=== PATIENT | male | born 1940 | race Caucasian/White ===

== ENCOUNTER 2016-08-17 21:51 | Inpatient (IN) | payer MEDICARE, OTHER ==
[~2016-08-17] VITALS: Ht 180.3 cm; Wt 74.3 kg
[~2016-08-17 21:51] MED LIST: ASPI325T PO
[2016-08-17] MEDS ORDERED: SODIUM CHLOR 0.9% 1000 ML INJ 800 ML IV ONE (21:54)
[2016-08-17] MEDS ORDERED: SODIUM CHLOR 0.9% 1000 ML INJ 1,000 ML IV ONE (21:54)
[2016-08-17 21:55] VITALS: BP 106/68; PULSE 96; RESP 18; TEMP 99.6; O2SAT 99
[2016-08-17] MEDS ORDERED: ACETAMINOPHEN 325 MG TAB PO ONE (22:00)
--- NOTE | 2016-08-17 22:02 | PD ---
HPI Chief Complaint: Altered Mental Status Time Seen by Provider: 21:54 Travel History International Travel<30 days: No Contact w/Intl Traveler<30days: No Traveled to known affect area: No History of Present Illness HPI 75-year-old male brought in by ambulance from home for evaluation of not acting like himself according to the patient's . He was last seen acting normally this morning. Throughout the day today he has had little to eat and drink and has not been acting normally. EMS did not note any focal neurologic deficits. He did note that he felt warm and had a temperature of 100F. His blood glucose was 85. Patient is alert and oriented to person and place. He denies any physical complaints. No chest pain or dyspnea. No abdominal pain. No headache. Shortly after the patient arrived to the emergency department, the patient's was at the bedside. She tells me that the patient has been sleeping a lot more over the last 3 days. Today he was not answering questions appropriately. He has been coughing. He drinks a moderate amount of alcohol, recently cutting back on the amount he consumes. He was drinking about 2 bottles of whiskey every 2 days which has been cut back to 2 bottles of his whiskey every few weeks. PFSH Past Medical History Cardiac Catheterization: Yes Chest Pain: Yes Diminished Hearing: No Immunizations Current: Yes Myocardial Infarction: Yes (X1) Past Surgical History Cardiac Surgery: Yes Coronary Stent: Yes (X2) Hysterectomy: Yes (HTN) Social History Alcohol Use: Yes ("KADI' ~1/3 BOTTLE DAILY) Tobacco Use: Yes (~1 PPD) Substance Use: Yes (ETOH) Allergies-Medications (Allergen,Severity, Reaction): Coded Allergies: No Known Allergies (Unverified , 02/02/16) Reported Meds & Prescriptions Reported Meds & Active Scripts Active Reported Aspirin 325 Mg Tab 325 Mg PO DAILY Review of Systems Except as stated in HPI: all other systems reviewed are Neg Physical Exam Narrative GENERAL: Well-developed, well-nourished, awake, alert, no acute distress. SKIN: Warm and dry. No rash. HEAD: Atraumatic. Normocephalic. EYES: Pupils equal and round. No scleral icterus. No injection or drainage. ENT: Mucous membranes pink and dry. NECK: Trachea midline. No JVD. No nuchal rigidity. CARDIOVASCULAR: Rate 100, regular. RESPIRATORY: No accessory muscle use. Clear to auscultation. Breath sounds equal bilaterally. GASTROINTESTINAL: Abdomen soft, non-tender, nondistended. MUSCULOSKELETAL: No obvious deformities. No clubbing. No cyanosis. No edema. NEUROLOGICAL: Awake and alert. No obvious cranial nerve deficits. Motor grossly within normal limits. Normal speech. No focal deficits. Transferred himself from ambulance stretcher to ER stretcher. PSYCHIATRIC: Appropriate mood and affect; insight and judgment normal. Data Data Last Documented VS Vital Signs Date Time Temp Pulse Resp B/P Pulse Ox O2 Delivery O2 Flow Rate FiO2 08/17/16 22:29 101.2 97 16 108/72 99 08/17/16 22:04 Nasal Cannula 2 Orders Electrocardiogram (08/17/16 21:54) Complete Blood Count With Diff (08/17/16 21:54) Comprehensive Metabolic Panel (08/17/16 21:54) Prothrombin Time / Inr (Pt) (08/17/16 21:54) Act Partial Throm Time (Ptt) (08/17/16 21:54) Lactic Acid Sepsis Protocol (08/17/16 21:54) Urinalysis - C+S If Indicated (08/17/16 21:54) Influenzae A/B Antigen (08/17/16 21:54) Blood Culture (08/17/16 21:54) Chest, Single Ap (08/17/16 21:54) Blood Glucose (08/17/16 21:54) Ecg Monitoring (08/17/16 21:54) Iv Access Insert/Monitor (08/17/16 21:54) Oximetry (08/17/16 21:54) Oxygen Administration (08/17/16 21:54) Acetaminophen (Tylenol) (08/17/16 22:00) Sodium Chlor 0.9% 1000 Ml Inj (Ns 1000 M (08/17/16 21:54) Sodium Chlor 0.9% 1000 Ml Inj (Ns 1000 M (08/17/16 21:54) Ct Brain W/O Iv Contrast(Rout) (08/17/16 ) Ceftriaxone Inj (Rocephin Inj) (08/17/16 23:00) Azithromycin Inj (Zithromax Inj) (08/17/16 23:00) Alcohol (Ethanol) (08/17/16 22:51) Alcohol (Ethanol) (08/17/16 22:15) Admit Order (Ed Use Only) (08/17/16 23:13) Labs Laboratory Tests Test 08/17/16 22:15 White Blood Count 6.3 TH/MM3 Red Blood Count 3.53 MIL/MM3 Hemoglobin 11.1 GM/DL Hematocrit 32.9 % Mean Corpuscular Volume 93.2 FL Mean Corpuscular Hemoglobin 31.6 PG Mean Corpuscular Hemoglobin 33.9 % Concent Red Cell Distribution Width 15.4 % Platelet Count 139 TH/MM3 Mean Platelet Volume 9.1 FL Neutrophils (%) (Auto) 66.2 % Lymphocytes (%) (Auto) 17.7 % Monocytes (%) (Auto) 14.4 % Eosinophils (%) (Auto) 1.1 % Basophils (%) (Auto) 0.6 % Neutrophils # (Auto) 4.2 TH/MM3 Lymphocytes # (Auto) 1.1 TH/MM3 Monocytes # (Auto) 0.9 TH/MM3 Eosinophils # (Auto) 0.1 TH/MM3 Basophils # (Auto) 0.0 TH/MM3 CBC Comment DIFF FINAL Differential Comment Prothrombin Time 14.7 SEC Prothromb Time International 1.3 RATIO Ratio Activated Partial 28.5 SEC Thromboplast Time Urine Color YELLOW Urine Turbidity CLEAR Urine pH 8.5 Urine Specific [place] 1.018 Urine Protein NEG mg/dL Urine Glucose (UA) NEG mg/dL Urine Ketones NEG mg/dL Urine Occult Blood NEG Urine Nitrite NEG Urine Bilirubin NEG Urine Leukocyte Esterase NEG Microscopic Urinalysis Comment CATH-CULT NOT IND Sodium Level 137 MEQ/L Potassium Level 4.0 MEQ/L Chloride Level 104 MEQ/L Carbon Dioxide Level 24.1 MEQ/L Anion Gap 9 MEQ/L Blood Urea Nitrogen 10 MG/DL Creatinine 0.81 MG/DL Estimat Glomerular Filtration 93 ML/MIN Rate Random Glucose 88 MG/DL Lactic Acid Level 1.5 mmol/L Calcium Level 8.2 MG/DL Total Bilirubin 0.6 MG/DL Aspartate Amino Transf 19 U/L (AST/SGOT) Alanine Aminotransferase 19 U/L (ALT/SGPT) Alkaline Phosphatase 74 U/L Total Protein 6.5 GM/DL Albumin 3.0 GM/DL Ethyl Alcohol Level LESS THAN 3 MG/DL MDM Medical Decision Making Medical Screen Exam Complete: Yes Emergency Medical Condition: Yes Interpretation(s) EKG: Sinus, rate 98, left axis deviation, RBBB with LAFB, no acute ischemic abnormality. Differential Diagnosis UTI, sepsis, metabolic abnormality, intracranial abnormality Narrative Course Initial vital signs show heart rate 97, blood pressure 108/72, pulse ox 99% on 2 L nasal cannula, oral temp of 101.2F. CBC shows WBC 6.3, hemoglobin 11.1, hematocrit 32.9, platelets 139. CMP is unremarkable. Lactic acid is 1.5. Alcohol level is negative. UA is not suggestive of UTI. Influenza is negative. Chest x-ray: Minimal left basilar infiltrate and probable small pleural effusion. CT head: No acute intracranial disease. The patient was started on Rocephin and azithromycin. The patient and the patient's were made aware of all findings. Patient meets sepsis criteria with pneumonia as the source. Given this and his delirium, he'll be admitted for further treatment and evaluation. Case discussed with [facility] hospitalist LEV Sotelo. The patient will be admitted to their service under Dr. Israel Diagnosis Primary Impression: Sepsis Qualified Code: A41.9 - Sepsis, due to unspecified organism Additional Impressions: Pneumonia Qualified Code: J18.1 - Pneumonia of left lower lobe due to infectious organism Delirium Admitting Information Admitting Physician Requests: Admit Jesu Baig MD Aug 17, 2016 22:02
[2016-08-17] MEDS ORDERED: ASPI325T PO (22:03)
--- NOTE | 2016-08-17 22:17 | RADHPO ---
EXAM DATE/TIME: 08/17/2016 22:08 [facility] COMPARISON: No previous studies available for comparison. INDICATIONS : Fever starting today MEDICAL HISTORY : None. SURGICAL HISTORY : None. ENCOUNTER: Initial ACUITY: 1 day PAIN SCORE: 0/10 LOCATION: Bilateral chest FINDINGS: A single view of the chest demonstrates minimal left basilar density and probable small effusion. Rig ht lung clear. Heart normal size. The cardiomediastinal contours are unremarkable. Osseous structure s are intact. CONCLUSION: Minimal left basilar infiltrate and probable small pleural effusion.. Serge Castellanos MD on August 17, 2016 at 22:15 Board Certified Radiologist. This report was verified electronically.
[2016-08-17 22:29] VITALS: BP 108/72; PULSE 97; RESP 16; TEMP 101.2; O2SAT 99
--- NOTE | 2016-08-17 22:31 | RADHPO ---
EXAM DATE/TIME: 08/17/2016 22:14 [facility] COMPARISON: No previous studies available for comparison. INDICATIONS : Altered mental status with headache. RADIATION DOSE: 60.02 CTDIvol (mGy) MEDICAL HISTORY : Cardiovascular disease. Hypertension. SURGICAL HISTORY : None. ENCOUNTER: Initial ACUITY: 3 days PAIN SCALE: 3/10 LOCATION: cranial TECHNIQUE: Multiple contiguous axial images were obtained of the head. Using automated exposure control and adj ustment of the mA and/or kV according to patient size, radiation dose was kept as low as reasonably a chievable to obtain optimal diagnostic quality images. FINDINGS: CEREBRUM: The ventricles are normal for age. No evidence of midline shift, mass lesion, hemorrhage or acute in farction. No extra-axial fluid collections are seen. POSTERIOR FOSSA: The cerebellum and brainstem are intact. The 4th ventricle is midline. The cerebellopontine angle i s unremarkable. EXTRACRANIAL: The visualized portion of the orbits is intact. SKULL: The calvaria is intact. No evidence of skull fracture. CONCLUSION: No acute intracranial disease. Serge Castellanos MD on August 17, 2016 at 22:29 Board Certified Radiologist. This report was verified electronically.
[2016-08-17 22:43] LABS: APTT (PATIENT) 28.5 SEC (24.3-30.1); AUTOMATED NEUTROPHIL # 4.2 TH/MM3 (1.8-7.7); BASOPHIL % 0.6 % (0.0-2.0); BLOOD, URINE NEG (NEG); CHLORIDE 104 MEQ/L (98-107); EOSINOPHIL # 0.1 TH/MM3 (0-0.4); EOSINOPHIL % 1.1 % (0.0-4.0); GLUCOSE,URINE NEG (NEG); HEMATOCRIT 32.9 % (39.0-51.0); HEMO FLAGS DIFF FINAL; INTERNATIONAL NORMALIZED RATIO 1.3 RATIO; KETONE, URINE NEG (NEG); LYMPH % 17.7 % (9.0-44.0); LYMPHOCYTE # 1.1 TH/MM3 (1.0-4.8); MEAN CELL VOLUME 93.2 FL (80.0-100.0); MEAN CORPUSCULAR HEMOGLOBIN 31.6 PG (27.0-34.0); MEAN CORPUSCULAR HGB CONC 33.9 % (32.0-36.0); MONO % 14.4 % (0.0-8.0); NEUT % 66.2 % (16.0-70.0); NITRITE,URINE NEG (NEG); PH, URINE 8.5 (5.0-8.5); PLATELET COUNT 139 TH/MM3 (150-450); PROTHROMBIN TIME - PATIENT 14.7 SEC (9.8-11.6); RED BLOOD COUNT 3.53 MIL/MM3 (4.50-5.90); RED CELL DISTRIBUTION WIDTH 15.4 % (11.6-17.2); SODIUM (NA) 137 MEQ/L (136-145); WHITE BLOOD COUNT 6.3 TH/MM3 (4.0-11.0)
[2016-08-17 22:45] LABS: ANION GAP 9 MEQ/L (5-15); BICARBONATE 24.1 MEQ/L (21.0-32.0); BLOOD UREA NITROGEN 10 MG/DL (7-18); URINE COLOR YELLOW (YELLW/STRAW)
[2016-08-17 22:47] LABS: COMMENT (UR) CATH-CULT NOT IND; CULTURE IF INDICATED CATH CULTURE NOT IND
[2016-08-17 22:48] LABS: ALT (GPT) 19 U/L (12-78); AST (GOT) 19 U/L (15-37); GLOMERULAR FILTRATION RATE 93 ML/MIN (>89)
[2016-08-17 22:49] LABS: TOTAL BILIRUBIN ADULT 0.6 MG/DL (0.2-1.0)
[2016-08-17 22:51] LABS: ALKALINE PHOSPHATASE 74 U/L (45-117)
[2016-08-17] MEDS ORDERED: AZITHROMYCIN INJ 500 MG in SODIUM CHLOR 0.9% 250 ML INJ 250 ML IV ONE (23:00)
[2016-08-17] MEDS ORDERED: cefTRIAXone INJ 1,000 MG in SODIUM CHLORIDE 0.9% INJ 100 ML IV ONE (23:00)
[2016-08-17 23:42] VITALS: BP 110/73; PULSE 82; RESP 16; TEMP 98.6; O2SAT 99
[2016-08-18] VITALS (9 sets, daily range): BP systolic 101–113; BP diastolic 67–81; PULSE 84–115; RESP 16–20; TEMP 97.8–99.5; O2SAT 94–100
[2016-08-18] MEDS ORDERED: LORazepam 1 MG TAB PO PRN (01:15)
[2016-08-18] MEDS ORDERED: NALOXONE HCL 0.4 MG/ML AMP IV PRN (01:15)
[2016-08-18] MEDS ORDERED: guaiFENesin/DEXTROMETHORPHAN 200 MG/20 MG/10 ML CUP PO PRN (01:15)
[2016-08-18] MEDS ORDERED: ONDANSETRON HCL 4 MG/2 ML VIAL IVP PRN (01:15)
[2016-08-18] MEDS ORDERED: LORazepam 2 MG TAB PO PRN (01:15)
[2016-08-18] MEDS ORDERED: LORazepam 2 MG/ML VIAL IV PUSH PRN ×3 (01:15)
[2016-08-18] MEDS ORDERED: BISACODYL 10 MG SUPP PR PRN (01:15)
[2016-08-18] MEDS ORDERED: SODIUM CHLORIDE 0.9% FLUSH 5 ML FLUSH FLUSH PRN (01:15)
[2016-08-18] MEDS ORDERED: RESP: ALBUTEROL 2.5 MG/IPRATROPIUM 0.5 MG NEB (PRN) INH (01:15)
[2016-08-18] MEDS ORDERED: SENNOSIDES 8.6 MG TAB PO PRN (01:15)
[2016-08-18] MEDS ORDERED: ACETAMINOPHEN 325 MG TAB PO PRN (01:15)
[2016-08-18] MEDS: SODIUM CHLOR 0.9% 1000 ML INJ 1,000 ML IV SCH ×3 (03:00→22:09)
[2016-08-18] MEDS: SODIUM CHLORIDE 0.9% FLUSH 5 ML FLUSH FLUSH SCH ×2 (09:00→22:09)
--- NOTE | 2016-08-18 09:16 | HHI.PR ---
Objective Objective Results - Vital Signs Date Time Temp Pulse Resp B/P Pulse Ox O2 Delivery O2 Flow Rate FiO2 08/18/16 08:25 98.9 97 18 111/72 95 08/18/16 07:11 98.6 84 16 109/76 97 Room Air 08/18/16 06:57 84 18 109/76 97 Room Air 08/18/16 05:15 98.7 87 16 113/76 100 Room Air 08/18/16 05:15 89 100 Room Air 08/18/16 01:15 88 16 109/74 99 Room Air 08/17/16 23:42 98.6 82 16 110/73 99 Room Air 08/17/16 22:29 101.2 97 16 108/72 99 08/17/16 22:04 99 Nasal Cannula 2 08/17/16 22:04 99 08/17/16 21:55 99.6 96 18 106/68 99 I/O 08/17/16 08/17/16 08/17/16 08/18/16 08/18/16 08/18/16 07:00 15:00 23:00 07:00 15:00 23:00 Intake Total 350 ml 240 ml Output Total 400 ml 2200 ml Balance -400 ml -1850 ml 240 ml Intake Oral 240 ml IV Total 350 ml Output Urine Total 400 ml 2200 ml # Voids 10 Result Diagram: 08/17/165 08/17/165 Other Results Laboratory Tests Test 08/17/16 22:15 White Blood Count 6.3 Red Blood Count 3.53 Hemoglobin 11.1 Hematocrit 32.9 Mean Corpuscular Volume 93.2 Mean Corpuscular Hemoglobin 31.6 Mean Corpuscular Hemoglobin 33.9 Concent Red Cell Distribution Width 15.4 Platelet Count 139 Mean Platelet Volume 9.1 Neutrophils (%) (Auto) 66.2 Lymphocytes (%) (Auto) 17.7 Monocytes (%) (Auto) 14.4 Eosinophils (%) (Auto) 1.1 Basophils (%) (Auto) 0.6 Neutrophils # (Auto) 4.2 Lymphocytes # (Auto) 1.1 Monocytes # (Auto) 0.9 Eosinophils # (Auto) 0.1 Basophils # (Auto) 0.0 CBC Comment DIFF FINAL Differential Comment Prothrombin Time 14.7 Prothromb Time International 1.3 Ratio Activated Partial 28.5 Thromboplast Time Urine Color YELLOW Urine Turbidity CLEAR Urine pH 8.5 Urine Specific [place] 1.018 Urine Protein NEG Urine Glucose (UA) NEG Urine Ketones NEG Urine Occult Blood NEG Urine Nitrite NEG Urine Bilirubin NEG Urine Leukocyte Esterase NEG Microscopic Urinalysis Comment CATH-CULT NOT IND Sodium Level 137 Potassium Level 4.0 Chloride Level 104 Carbon Dioxide Level 24.1 Anion Gap 9 Blood Urea Nitrogen 10 Creatinine 0.81 Estimat Glomerular Filtration 93 Rate Random Glucose 88 Lactic Acid Level 1.5 Calcium Level 8.2 Total Bilirubin 0.6 Aspartate Amino Transf 19 (AST/SGOT) Alanine Aminotransferase 19 (ALT/SGPT) Alkaline Phosphatase 74 Total Protein 6.5 Albumin 3.0 Ethyl Alcohol Level LESS THAN 3 Date/Time Procedure Status Source Growth 08/17/16 22:30 Influenza Types A,B Antigen (FOSTER) - Final Complete Nasal Washing NEGATIVE FOR FLU A AND B ANTIGEN.... 08/17/16 22:30 Aerobic Blood Culture Received Blood Peripheral Pending 08/17/16 22:30 Anaerobic Blood Culture Received Blood Peripheral Pending A/P Assessment and Plan Patient has been counseled about anti-smoking and to stop drinking. Ciarra Burnett MD Aug 18, 2016 09:16
--- NOTE | 2016-08-18 09:57 | MH ---
cc: ISABELLA BURNETT DATE OF ADMISSION 08/17/2016 DATE OF [address] Isabella Burnett PRIMARY CARE DOCTOR Dr. Serna REASON FOR ADMISSION Altered mental status HISTORY OF PRESENT ILLNESS The patient is a very pleasant 75-year male with a significant past history of heart attack in 2000. As per patient since then, the patient is on aspirin and he takes some of multivitamins. The patient drinks, as per record, one third of a bottle of Bert Florentino daily. He used to drink more than that before. He is trying to cut it down from the past couple of weeks. He also has smoked one pack per day. As per the patient, he came to the hospital because of his . Now he is feeling good. He is alert and oriented x4. As per ER physician documentation, the patient was not acting himself yesterday. Throughout yesterday, he has had little to eat and drink. EMS did not find any neurological deficit. He has felt warm and he had a temperature of 100 degrees Fahrenheit. In the ER, he had a T-max of 101.2. He had an infiltrate and because of altered mental status with infiltrate and drinking, the patient was recommended for admission. At present, the patient is alert, oriented x4. Has no complaint. Except that he has some time cough with clear sputum. He is somewhat feeling weak, otherwise no other complaint. REVIEW OF SYSTEMS As described above in the history of present illness, otherwise negative for 10 systems. SOCIAL HISTORY The patient smoked one pack per day. He used to drink one bottle of Bert Florentino in two days now one-third every day. He does not do any drugs. living with his . PAST MEDICAL HISTORY History of heart attack in the past with coronary stent x2. He is only on aspirin. ALLERGIES NO KNOWN DRUG ALLERGIES. MEDICATIONS Aspirin 325 mg a day FAMILY HISTORY Noncontributory PHYSICAL EXAMINATION The patient is alert and oriented x4 lying on bed without any apparent distress. VITAL SIGNS: The patient is afebrile, pulse is 98, respiratory rate 18, blood pressure 111/72, pulse ox 95% on room air. HEENT: Head is atraumatic, normocephalic. Negative conjunctival icterus unremarkable. Mouth unremarkable. NECK: Supple. No increased JVD. Negative thyromegaly. Central trachea. CHEST: Slight decreased air entry bibasilar with occasional rhonchi, otherwise unremarkable. CVS: S1 and S2 audible. Unable to hear any S3 gallop. GI: Abdomen soft, no organomegaly. Positive bowel sounds. MUSCULOSKELETAL: Extremities have no cyanosis or pedal edema appreciated. MACHINE SETTER: Grossly intact. SKIN: Warm and dry. PSYCH: Appropriate mood and affect. INVESTIGATIONS UA within normal limits. BMP within normal limits. Calcium 8.2. LFTs within normal limit. Albumin is 3. WBC is within normal limits. Hemoglobin 11.1, hematocrit 32.9, platelet count is 139. PT 14%, INR and APTT within normal limits. He does have an alcohol less than 3. Nasal washing shows negative for flu A and B antigen. Head CT was done which shows no acute intracranial process. Chest x-ray was done which showed minimal left basilar infiltrate and probably a small pleural effusion. EKG was done which shows sinus rhythm at rate of 98 beats per minute with RBBB. ASSESSMENT 1. Altered mental status metabolic encephalopathy secondary to Pneumonia. 2. Pneumonia left lower lobe community-acquired. 3. Alcohol abuse 4. Nicotine abuse 5. History of CAD status post stent now on aspirin only. PLAN 1. Admit to the floor. 2. IV hydration 3. IV antibiotic for pneumonia. 4. WA protocol for withdrawal and watch for withdrawal and DTs. 5. Aspirin 6. Encourage activity 7. See orders. 8. Further recommendation to follow as the patient progress. 9. Partner will follow from tomorrow. Isabella Burnett MD JP/ROBERT /9:11 AM /9:43 AM
--- NOTE | 2016-08-18 10:27 | EKG ---
Date Performed: 08/17/2016 Time Performed: 22:09:42 PTAGE: 75 years EKG: Sinus rhythm with PAC(s) Left axis deviation RBBB with left anterior fascicular block Abnormal ECG NO PREVIOUS TRACING DOCTOR: Torito Conte Interpretating Date/Time 08/18/2016 10:25:52
[2016-08-18] MEDS: THIAMINE HCL 100 MG TAB PO SCH (12:24)
[2016-08-18] MEDS: FOLIC ACID 1 MG TAB PO SCH (12:24)
[2016-08-18] MEDS: MULTIVITAMINS/MINERALS THERAPEUTIC TAB PO SCH (12:24)
[2016-08-18] MEDS: PANTOPRAZOLE SOD 40 MG DELAYED RELEASE TAB PO SCH (12:24)
[2016-08-18] MEDS: HEPARIN SODIUM - SQ 10,000 UNITS/ML VIAL SQ SCH ×2 (12:26→22:09)
[2016-08-18] MEDS: AZITHROMYCIN 250 MG TAB PO SCH (22:09)
[2016-08-18] MEDS: cefTRIAXone INJ 1,000 MG in SODIUM CHLORIDE 0.9% INJ 100 ML IV SCH (22:10)
[2016-08-19] VITALS (7 sets, daily range): BP systolic 102–132; BP diastolic 70–94; PULSE 77–118; RESP 14–20; TEMP 96.9–100.2; O2SAT 93–99
[2016-08-19] MEDS: SODIUM CHLOR 0.9% 1000 ML INJ 1,000 ML IV SCH ×3 (06:22→23:29)
[2016-08-19 07:36] LABS: HEMATOCRIT 33.2 % (39.0-51.0); MEAN CELL VOLUME 93.4 FL (80.0-100.0); MEAN CORPUSCULAR HEMOGLOBIN 30.3 PG (27.0-34.0); MEAN CORPUSCULAR HGB CONC 32.4 % (32.0-36.0); PLATELET COUNT 128 TH/MM3 (150-450); RED BLOOD COUNT 3.55 MIL/MM3 (4.50-5.90); RED CELL DISTRIBUTION WIDTH 15.1 % (11.6-17.2)
[2016-08-19 08:02] LABS: MAGNESIUM 1.7 MG/DL (1.5-2.5)
[2016-08-19 08:06] LABS: INDIRECT BILIRUBIN 0.3 MG/DL (0.0-0.8); TOTAL BILIRUBIN ADULT 0.4 MG/DL (0.2-1.0)
[2016-08-19 08:50] LABS: EOSINOPHILS 2 % (0-4); NEUTROPHIL # MANUAL DIFF 1.8 TH/MM3 (1.8-7.7); POLYS (SEG NEUTROPHILS) 46 % (16-70); WBC DIFF SAMPLE 100
[2016-08-19 08:51] LABS: PLATELET ESTIMATE SMEAR LOW (NORMAL); PLATELET MORPHOLOGY NORMAL (NORMAL); SCAN/DIFF FINAL DIFF MANUAL
[2016-08-19] MEDS: SODIUM CHLORIDE 0.9% FLUSH 5 ML FLUSH FLUSH SCH ×2 (09:00→20:11)
[2016-08-19] MEDS: PANTOPRAZOLE SOD 40 MG DELAYED RELEASE TAB PO SCH (09:25)
[2016-08-19] MEDS: FOLIC ACID 1 MG TAB PO SCH (09:25)
[2016-08-19] MEDS: MULTIVITAMINS/MINERALS THERAPEUTIC TAB PO SCH (09:25)
[2016-08-19] MEDS: THIAMINE HCL 100 MG TAB PO SCH (09:25)
[2016-08-19] MEDS: HEPARIN SODIUM - SQ 10,000 UNITS/ML VIAL SQ SCH ×2 (09:26→20:12)
[2016-08-19] MEDS ORDERED: INFLUENZA VIRUS VACCINE (QUADRIVALENT) 0.5 ML SYR IM ONE (10:00)
[2016-08-19] MEDS ORDERED: PNEUMOCOCCAL POLYVALENT INJ 25 MCG/0.5 ML SYR IM ONE (10:00)
--- NOTE | 2016-08-19 12:07 | HHI.PR ---
Subjective Interval History sleeping, Arousable, breathing better, less cough, some tremor at times according to the nurse Review of Systems Constitutional Constitutional Remarks Cough, tremor, 10 systems reviewed and otherwise negative Vitals/Results Intake & Output 08/18/16 08/18/16 08/19/16 15:00 23:00 07:00 Intake Total 720 ml 120 ml 1170 ml Output Total 125 ml 300 ml Balance 720 ml -5 ml 870 ml Intake Oral 720 ml 120 ml 120 ml IV Total 1050 ml Output Urine Total 125 ml 300 ml # Voids 3 1 3 # Bowel Movements 2 0 0 Vital Signs Vital Signs Date Time Temp Pulse Resp B/P Pulse Ox O2 Delivery O2 Flow Rate FiO2 08/19/16 08:00 98.1 95 16 120/81 94 08/19/16 08:00 77 08/19/16 04:00 98.9 90 20 102/71 96 08/19/16 00:00 98.5 98 20 111/79 95 08/18/16 20:00 98.7 115 20 108/81 95 08/18/16 16:00 99.5 89 18 101/67 94 CBC/BMP: 08/19/16 0700 08/17/16 2215 Lab Results Laboratory Tests Test 08/19/16 07:00 White Blood Count 4.0 TH/MM3 Red Blood Count 3.55 MIL/MM3 Hemoglobin 10.8 GM/DL Hematocrit 33.2 % Mean Corpuscular Volume 93.4 FL Mean Corpuscular Hemoglobin 30.3 PG Mean Corpuscular Hemoglobin 32.4 % Concent Red Cell Distribution Width 15.1 % Platelet Count 128 TH/MM3 Mean Platelet Volume 8.8 FL Differential Total Cells 100 Counted Neutrophils % (Manual) 46 % Lymphocytes % 37 % Monocytes % 15 % Eosinophils % 2 % Neutrophils # (Manual) 1.8 TH/MM3 Differential Comment FINAL DIFF MANUAL Platelet Estimate LOW Platelet Morphology Comment NORMAL Phosphorus Level 3.0 MG/DL Magnesium Level 1.7 MG/DL Total Bilirubin 0.4 MG/DL Direct Bilirubin 0.1 MG/DL Indirect Bilirubin 0.3 MG/DL Aspartate Amino Transf 20 U/L (AST/SGOT) Alanine Aminotransferase 15 U/L (ALT/SGPT) Alkaline Phosphatase 57 U/L Total Protein 5.7 GM/DL Albumin 2.6 GM/DL Physical Exam General General Appearance: Well Nourished, Comfortable, Anxious Eyes Eye Exam: Pupils Reactive Ears & Nose Ears & Nose Exam: Nasal Mucosa [place] Throat Throat Exam: Oral Mucosa [place] & Moist Neck Neck Exam: Trachea Midline Pulmonary Resp Exam: Crackles, Rhonchi Cardiology CV Exam: Normal Sinus Rhythm, Good Perfusion Gastrointestinal/Abdomen GI Exam: Non-Tender, Bowel Sounds Present Musculoskeletal MS Exam: Normal Tone, Good Strength Integumentary Skin Exam: Warm, Dry Neurologic Neuro Exam: Awake, Oriented, Speech Clear, Moving All Extremities VTE Prophylaxis VTE Prophylaxis Meds: Heparin Assessment/Plan Assessment/Plan ASSESSMENT . Altered mental status metabolic encephalopathy Upon admission, this has improved. . Pneumonia left lower lobe community-acquired. . Alcohol abuse . Nicotine abuse . History of CAD status post stent now on aspirin only. PLAN . Telemetry . IV hydration . IV antibiotic for pneumonia. . CIWA protocol for withdrawal and watch for withdrawal and DTs . Thiamine . DVT prophylaxis with low dose heparin . Aspirin . Discussed with patient, discussed with nurse 35 min.. Markos Israel MD Aug 19, 2016 12:07
[2016-08-19] MEDS: AZITHROMYCIN 250 MG TAB PO SCH (20:12)
[2016-08-19] MEDS: cefTRIAXone INJ 1,000 MG in SODIUM CHLORIDE 0.9% INJ 100 ML IV SCH (23:29)
[2016-08-20] VITALS (10 sets, daily range): BP systolic 100–120; BP diastolic 72–82; PULSE 82–101; RESP 14–22; TEMP 97–100.4; O2SAT 95–100
[2016-08-20] MEDS: HEPARIN SODIUM - SQ 10,000 UNITS/ML VIAL SQ SCH (09:00)
[2016-08-20] MEDS: SODIUM CHLORIDE 0.9% FLUSH 5 ML FLUSH FLUSH SCH ×2 (09:00→21:00)
[2016-08-20] MEDS: PANTOPRAZOLE SOD 40 MG DELAYED RELEASE TAB PO SCH (09:13)
[2016-08-20] MEDS: THIAMINE HCL 100 MG TAB PO SCH (09:13)
[2016-08-20] MEDS: FOLIC ACID 1 MG TAB PO SCH (09:13)
[2016-08-20] MEDS: MULTIVITAMINS/MINERALS THERAPEUTIC TAB PO SCH (09:13)
--- NOTE | 2016-08-20 10:44 | HHI.PR ---
Subjective Remarks 75yr old male seen an examined today. Non compliant with fall precautions. Spiked a temp of 100.4 yesterday night. No NVD/CVP/SOB. Objective Objective Results - Vital Signs Date Time Temp Pulse Resp B/P Pulse Ox O2 Delivery O2 Flow Rate FiO2 08/20/16 08:21 96 21 08/20/16 08:00 97.0 88 21 107/79 96 08/20/16 05:11 99.9 88 16 120/82 95 08/20/16 01:58 99.8 08/20/16 00:12 100.4 93 14 116/76 95 08/19/16 21:45 97 08/19/16 20:12 100.2 118 14 107/70 93 08/19/16 16:00 97.7 86 16 132/94 99 08/19/16 12:00 96.9 80 16 105/71 98 I/O 08/19/16 08/19/16 08/19/16 08/20/16 08/20/16 08/20/16 07:00 15:00 23:00 07:00 15:00 23:00 Intake Total 1170 ml 480 ml 2343 ml Output Total 300 ml 200 ml 800 ml Balance 870 ml 280 ml 1543 ml Intake Oral 120 ml 480 ml IV Total 1050 ml 2343 ml Output Urine Total 300 ml 200 ml 800 ml # Voids 3 5 3 # Bowel Movements 0 Result Diagram: 08/19/16 0700 08/17/165 Other Results Date/Time Procedure Status Source Growth 08/17/16 22:30 Influenza Types A,B Antigen (FOSTER) - Final Complete Nasal Washing NEGATIVE FOR FLU A AND B ANTIGEN.... 08/17/16 22:30 Aerobic Blood Culture - Preliminary Resulted Blood Peripheral NO GROWTH IN 2 DAYS 08/17/16 22:30 Anaerobic Blood Culture - Preliminary Resulted Gram Positive Cocci ROS General: No: Fatigue, Weakness, Other HEENT: No: Sore Throat, Dysphagia, Other Cardiac: No: Chest Pain, Edema, Palpitations, Other Pulmonary: No: Cough, SOB, Wheezing, Other GI: No: Abdominal Pain, BM, Diarrhea, N/V, Other /ROLLER INSPECTOR: No: Dysuria, Urgency, Other Neuro/MS: No: Lightheaded, Confusion, Other Psych: No: Anxiety, Depression, Other Skin: No: Itching, Rash, Other Physical Exam Physical Exam PHYSICAL EXAMINATION GENERAL: This is a well-developed, well-nourished male who appears to be in no acute distress. He is alert and awake. HEAD: Normocephalic without any lesion or mass noted. Facial features appear symmetric. EYES: [place], Normal eye movement, No icterus. OROPHARYNGEAL: Oropharynx without erythema or edema. MOUTH/THROAT: Moist oral mucosa. NECK: Supple. CARDIAC: Regular rhythm, regular rate, S1 and S2 are heard. No murmur. LUNGS: Clear to auscultation bilaterally. Occ wheezes. ABDOMEN: Soft, nontender, no organomegaly or masses. Bowel sounds are heard in all four quadrants. No rebound. No guarding. EXTREMITIES: No edema. NEUROLOGICAL: No focal deficits. SKIN:Warm and moist PSYCH: Mood and affect appropriate A/P Assessment and Plan Asesessment: 1. Pneumonia left lower lobe community-acquired. 2. Bacteremia: gm pos cocci. 3. Fever. 4. Alcohol abuse 5. Nicotine abuse 6. History of CAD status post stent now on aspirin only. PLAN Change abx to vancomycin 1gm iv/day Consult pharmacy for dosing/monitoring. Consult ID. Dc IVF as patient is eating/drinking well. WA protocol for withdrawal and watch for withdrawal and DTs. Aspirin Encourage activity Hold Heparin due to low platelets. PUD prophylaxis: PPI. AM labs. discussed with pt/RN. Polly Thorne MD Aug 20, 2016 10:44
[2016-08-20] MEDS ORDERED: VANCOMYCIN INJ 1,000 MG in SODIUM CHLOR 0.9% 250 ML INJ 250 ML IV SCH (11:00)
[2016-08-20] MEDS ORDERED: HEPARIN SODIUM - SQ 10,000 UNITS/ML VIAL SQ SCH (15:00)
--- NOTE | 2016-08-20 17:27 | MB ---
cc: ALAN ARCE MD DATE OF CONSULTATION 08/20/[address] Thorne REASON FOR CONSULTATION Positive blood culture. HISTORY OF PRESENT ILLNESS This is a 75-year-old white male who presented to emergency department with altered mental status. The patient was brought to the emergency department by EMS. In the emergency department, the patient was noted to have elevated temperature of 101.2 degrees. The white blood cell count was normal. Chest x-ray was performed and it showed minimal left basilar infiltrate. The patient was admitted and started on IV antibiotics. Blood cultures were taken on admission and one of four bottles has gram-positive cocci. The patient currently is laying in bed. He is in no acute distress. He tells me that he feels fine. He does have low grade fever with his last T-max being 100.4 degrees earlier this morning. He denies headache, chills, shortness of breath, cough, sputum production, abdominal pain or diarrhea. CT scan of the head showed no acute intracranial abnormality. Urinanalysis on 08/17 was unremarkable. PAST MEDICAL HISTORY 1. Three coronary artery stent x2 in 2000. 2. History of myocardial infarction. ALLERGIES NO KNOWN DRUG ALLERGIES. MEDICATIONS 1. Vancomycin. 2. Folic acid. 3. Vitamin B12. 4. Multivitamin 5. Protonix SOCIAL HISTORY Positive alcohol intake daily. The patient smokes a pack of cigarettes a day. No illicit drugs. FAMILY HISTORY Noncontributory. REVIEW OF SYSTEMS CONSTITUTIONAL: Remarkable for fever. No chills. HEENT: Denies visual blurring or diplopia, nasal bleeding, difficulty swallowing or soreness of the throat. NECK: Denies pain or swelling. CARDIOVASCULAR: Denies palpitation or chest pain. RESPIRATORY: Denies cough or sputum production or shortness of breath. GASTROINTESTINAL: Denies nausea, vomiting, abdominal pain or diarrhea. GENITOURINARY: Denies urgency, frequency or dysuria. MUSCULOSKELETAL: Denies aches or pains. HEMATOPOIETIC: Denies easy bruising or bleeding. ENDOCRINE: Denies polyuria, polydipsia. NEUROLOGIC: The patient has tremulousness PHYSICAL EXAMINATION GENERAL: This is a slender male who is in no acute distress. He is awake and he is alert and oriented. VITAL SIGNS: Temperature 97.1, BP 104/78, respirations 20, heart rate 101. HEENT: Head is atraumatic. Extraocular movements grossly intact, pupils reactive to light. No icterus. Oropharynx no visible lesions. NECK: Supple and has no adenopathy. LUNGS: Clear breath sounds HEART: Regular rate and rhythm. No audible murmurs. ABDOMEN: Bowel sounds present, soft, no tenderness appreciated. RECTAL: Not performed. EXTREMITIES: No clubbing, cyanosis or edema. The patient has ecchymosis at the forearm of the left upper extremity. An IV is located at the left upper extremity and there is no swelling or palpable cord. NEUROLOGIC: The patient is awake, alert and oriented. No gross focal findings. SKIN: No rash. PSYCHIATRIC: The patient is calm and cooperative. LABORATORY DATA WBC 4.0, platelet count 128, 46% neutrophils, 37% lymphocytes, 15% monocytes, hemoglobin 10.8, creatinine 0.81, BUN 10, sodium 137. Liver function tests normal. IMPRESSION Bacteremia. Positive blood culture with gram-positive cocci in 1/4 bottles. The patient admitted with altered mental status but now His mental status appears clear. He does have low grade fever without any clear foci of origin of sepsis or cause of fever. However, he did have infiltrate on chest x-ray on 08/17 which may be the cause of the fever. I think the positive blood culture is very likely due to contamination rather than a true cause of the fever. RECOMMENDATIONS 1. Monitor the identity of the gram-positive bacteria in the blood stream. If it is staph coagulase negative, I think it is due to contamination. If it is staph coagulase-positive, we will need to follow up on the identity of the bacteria and repeat the blood culture again. If the bacteria is coag-negative staph, I think we can discontinue the vancomycin. 2. Continue to monitor the patient's temperature. Thank you for this consultation. I will monitor the patient's progress along with you and will make further recommendations if necessary. Alan Arce MD FD/ /4:04 PM /4:54 PM CHRISTI
[2016-08-21] VITALS: BP 99/69; PULSE 87; RESP 18; TEMP 98.6; O2SAT 97
[2016-08-21 04:00] VITALS: BP 107/71; PULSE 85; RESP 18; TEMP 98.5; O2SAT 97
[2016-08-21 08:00] VITALS: BP 112/86; PULSE 113; RESP 20; TEMP 98.4; O2SAT 94
[2016-08-21] MEDS: THIAMINE HCL 100 MG TAB PO SCH (08:17)
[2016-08-21] MEDS: PANTOPRAZOLE SOD 40 MG DELAYED RELEASE TAB PO SCH (08:17)
[2016-08-21] MEDS: SODIUM CHLORIDE 0.9% FLUSH 5 ML FLUSH FLUSH SCH (08:17)
[2016-08-21] MEDS: FOLIC ACID 1 MG TAB PO SCH (08:17)
[2016-08-21] MEDS: MULTIVITAMINS/MINERALS THERAPEUTIC TAB PO SCH (08:17)
--- NOTE | 2016-08-21 08:21 | HHI.PR ---
Subjective Remarks 75yr old male seen an examined today. Feeling good. Wants to go home. Objective Objective Results - Vital Signs Date Time Temp Pulse Resp B/P Pulse Ox O2 Delivery O2 Flow Rate FiO2 08/21/16 04:00 98.5 85 18 107/71 97 08/21/16 00:00 98.6 87 18 99/69 97 08/20/16 20:00 97.0 86 18 108/72 96 08/20/16 20:00 82 08/20/16 19:46 95 21 08/20/16 16:06 97.1 98 22 100/74 100 08/20/16 12:00 97.1 101 20 104/78 99 08/20/16 09:15 94 08/20/16 08:21 96 21 I/O 08/20/16 08/20/16 08/20/16 08/21/16 08/21/16 08/21/16 07:00 15:00 23:00 07:00 15:00 23:00 Intake Total 2343 ml 900 ml 360 ml Output Total 800 ml Balance 1543 ml 900 ml 360 ml Intake Oral 900 ml 360 ml IV Total 2343 ml Output Urine Total 800 ml # Voids 3 6 2 5 # Bowel Movements 0 0 0 Result Diagram: 08/19/16 0700 08/17/165 Other Results Date/Time Procedure Status Source Growth 08/17/16 22:30 Influenza Types A,B Antigen ([facility]) - Final Complete Nasal Washing NEGATIVE FOR FLU A AND B ANTIGEN.... 08/17/16 22:30 Aerobic Blood Culture - Preliminary Resulted Blood Peripheral NO GROWTH IN 3 DAYS 08/17/16 22:30 Anaerobic Blood Culture - Preliminary Resulted Gram Positive Cocci ROS General: No: Fatigue, Weakness, Other HEENT: No: Sore Throat, Dysphagia, Other Cardiac: No: Chest Pain, Edema, Palpitations, Other Pulmonary: No: Cough, SOB, Wheezing, Other GI: No: Abdominal Pain, BM, Diarrhea, N/V, Other /PRODUCT TEST SPECIALIST: No: Dysuria, Urgency, Other Neuro/MS: No: Lightheaded, Confusion, Other Psych: No: Anxiety, Depression, Other Skin: No: Itching, Rash, Other Physical Exam Physical Exam PHYSICAL EXAMINATION GENERAL: This is a well-developed, well-nourished male who appears to be in no acute distress. He is alert and awake. HEAD: Normocephalic without any lesion or mass noted. Facial features appear symmetric. EYES: Perrla, Normal eye movement, No icterus. OROPHARYNGEAL: Oropharynx without erythema or edema. MOUTH/THROAT: Moist oral mucosa. NECK: Supple. CARDIAC: Regular rhythm, regular rate, S1 and S2 are heard. No murmur. LUNGS: Clear to auscultation bilaterally. Occ wheezes. ABDOMEN: Soft, nontender, no organomegaly or masses. Bowel sounds are heard in all four quadrants. No rebound. No guarding. EXTREMITIES: No edema. NEUROLOGICAL: No focal deficits. SKIN:Warm and moist PSYCH: Mood and affect appropriate A/P Assessment and Plan Asesessment: 1. Pneumonia left lower lobe community-acquired. 2. Bacteremia: gm pos cocci. 3. Fever. 4. Alcohol abuse 5. Nicotine abuse 6. History of CAD status post stent now on aspirin only. PLAN appreciate ID input. Dc IVF as patient is eating/drinking well. No fever overnight. Blood cultures: prob contamination. Will dc home on doxycycline. follow cultures. discussed with pt/RN. Polly Thorne MD Aug 21, 2016 08:21
[2016-08-21 08:45] LABS: AUTOMATED NEUTROPHIL # 2.9 TH/MM3 (1.8-7.7); BASOPHIL % 0.2 % (0.0-2.0); EOSINOPHIL # 0.1 TH/MM3 (0-0.4); EOSINOPHIL % 2.5 % (0.0-4.0); HEMATOCRIT 33.7 % (39.0-51.0); HEMO FLAGS DIFF FINAL; LYMPH % 28.1 % (9.0-44.0); LYMPHOCYTE # 1.3 TH/MM3 (1.0-4.8); MEAN CELL VOLUME 91.5 FL (80.0-100.0); MEAN CORPUSCULAR HEMOGLOBIN 29.4 PG (27.0-34.0); MEAN CORPUSCULAR HGB CONC 32.2 % (32.0-36.0); MONO % 9.9 % (0.0-8.0); NEUT % 59.3 % (16.0-70.0); PLATELET COUNT 117 TH/MM3 (150-450); RED BLOOD COUNT 3.69 MIL/MM3 (4.50-5.90); RED CELL DISTRIBUTION WIDTH 15.2 % (11.6-17.2); WHITE BLOOD COUNT 4.8 TH/MM3 (4.0-11.0)
[2016-08-21 08:54] LABS: POTASSIUM 3.6 MEQ/L (3.5-5.1)
[2016-08-21 08:58] LABS: BICARBONATE 23.5 MEQ/L (21.0-32.0)
[2016-08-21] MEDS ORDERED: VITA100T2 PO (09:33)
[2016-08-21] MEDS ORDERED: DOXY100C PO (09:33)
[2016-08-21] MEDS ORDERED: PANT40TA3 PO (09:33)
== END 2016-08-21 11:52 | disposition home or self-care (01) | DRG 193 ==
LOC: PHED 21:51 → PHEDA 23:14 → INTOOBSV 23:14 → PHEDH 08-18 03:14 → PH3B 08-18 08:10 → OBSVTOIN 08-20 15:16
PROVIDERS: ADMIT Specialist; ATTEND Specialist
DX: J18.9 Pneumonia, unspecified organism (principal); G93.41 Metabolic encephalopathy; R78.81 Bacteremia; F17.210 Nicotine dependence, cigarettes, uncomplicated; I25.2 Old myocardial infarction; I25.10 Atherosclerotic heart disease of native coronary artery without angina pectoris; Z95.5 Presence of coronary angioplasty implant and graft; Z79.82 Long term (current) use of aspirin; I45.10 Unspecified right bundle-branch block; F10.10 Alcohol abuse, uncomplicated; R25.1 Tremor, unspecified; Z23 Encounter for immunization
CPT/HCPCS: 70450; 71010; 80048; 80053; 80076; 80307; 81001; 83605; 83735; 84100; 85007; 85025; 85027; 85610; 85730; 87040; 87185; 87205; 87804; 90471; 90686; 90732; 93005; G0008; G0009; G0378; J0456; J0696; J1644; J3370; J7030; J7050; Q2038

== ENCOUNTER 2018-04-17 12:57 | Inpatient (IN) ==
[2018-04-17] MEDS ORDERED: Pantoprazole Inj 80 MG in Sodium Chlor 0.9% Inj 50 ML IV.SIG ONE (13:22)
[2018-04-17] MEDS ORDERED: Sod Chloride 0.9% Inj 1,000 ML IV.SIG ONE (13:22)
--- NOTE | 2018-04-17 13:32 | ED ---
HPI General Chief complaint: GI Bleed Stated complaint: vomiting x930a.m Time Seen by Provider: 04/17/18 13:13 History of Present Illness HPI narrative: Patient presents to the emergency department complaining of vomiting dark brown fluid that started this morning. States he has never had these symptoms before. He denies bloody stool, hematuria, abdominal pain, chest pain, shortness of breath, headache, fever, vision change, chills, but reports sweating. He takes 2 baby aspirin every day and the last dose was yesterday. He is a heavy drinker he drinks approximately 10 ounces of liquor every day with the last drink being 4 hours ago. States he does have tremors when he stops drinking. Patient has an entire cup full of dark brown emesis that he brought to the ER. He has never had an upper GI or colonoscopy. Related Data Home Medications Medication Instructions Recorded Confirmed aspirin [Aspir-81] 162 mg PO DAILY 04/17/18 04/17/18 magnesium 500 mg PO DAILY 04/17/18 04/17/18 thiamine HCl (vitamin B1) [Vitamin 0 04/17/18 B-1] Allergies Allergy/AdvReac Type Severity Reaction Status Date / Time No Known Allergies Allergy Verified 04/17/18 13:05 Review of Systems ROS: all other systems reviewed are negative [facility] Medical History Medical History Myocardial infarction (Acute) Surgical History Surgical History H/O inguinal hernia repair (Acute) History of coronary artery stent placement (Acute) History of tonsillectomy and adenoidectomy (Acute) Family History Family History Father Esophageal cancer Mother Dementia Social History Social History Smoking Status: Heavy tobacco smoker Tobacco Type: Cigarettes How Often Do You Have a Drink Containing Alcohol: 4 or more times a week Recent Travel in [facility] within the Last 8 Weeks: No Recent Out of Country Travel within the Last 8 Weeks: No Immunization History Tetanus Immunization: Unsure Exam Narrative Exam Narrative: GENERAL: Tremulous on exam. SKIN: Focused skin assessment warm/dry. HEAD: Atraumatic. Normocephalic. EYES: Pupils equal and round. No scleral icterus. No injection or drainage. ENT: No nasal bleeding or discharge. Mucous membranes pink and moist. NECK: Trachea midline. No JVD. CARDIOVASCULAR: Tachy, irreg. No murmur appreciated. RESPIRATORY: No accessory muscle use. Clear to auscultation. Breath sounds equal bilaterally. GASTROINTESTINAL: Abdomen soft, non-tender, nondistended. Hepatic and splenic margins not palpable. Rectal: Brown stool, Hemoccult positive MUSCULOSKELETAL: No obvious deformities. No clubbing. No cyanosis. No edema. NEUROLOGICAL: Awake and alert. No obvious cranial nerve deficits. Motor grossly within normal limits. Normal speech. PSYCHIATRIC: Appropriate mood and affect; insight and judgment normal. Course Initial Documented Vital Signs Temperature 97.6 F 04/17/18 13:02 Pulse Rate 109 H 04/17/18 13:02 Respiratory Rate 18 04/17/18 13:02 Blood Pressure 122/84 04/17/18 13:02 Pulse Oximetry 98 04/17/18 13:02 Last Documented Vital Signs Temperature 98 F 04/18/18 03:00 Pulse Rate 91 H 04/18/18 03:00 Respiratory Rate 14 04/18/18 03:00 Blood Pressure 135/83 04/18/18 03:00 Pulse Oximetry 99 04/18/18 03:00 Critical Care Time Critical Care Time: Yes Total Critical Care Time: 35 Attestation: Aggregate critical care time was 35 minutes. Time to perform other separately billable procedures was not included in the critical care time. My time did not include minutes spent treating any other patients simultaneously or on activities that did not directly contribute to the patient's treatment. The services I provided to this patient were to treat and/or prevent clinically significant deterioration that could result in: , cardiac arrest, respiratory arrest I provided critical care services requiring my management, as noted below: Chart data review, documentation time, medication orders and management, vital sign assessments/reviewing monitor data, ordering and reviewing lab tests, ordering and interpreting/reviewing x-rays and diagnostic studies, care of the patient and discussion of the patient with the admitting physicians. Medical Decision Making MDM Narrative Medical decision making narrative: Patient presents to the emergency department complaining of vomiting brown fluid. Patient placed on cardiac nurse, continuous pulse ox, and IV access obtained. Hemoccult of the emesis which patient has in a container is positive. EKG, chest x-ray, labs, 80 mg IV Protonix, IV fluids ordered. Patient typed and screened for 3 units PRBCs. 1400: patient is orthostatic (supine 130/85, 126; stand 76/60, 145-156 HR with dizzyness). Started on protonix gtt. 1458: Spoke to Dr Sonido, GI acquisition professional. Request patient [facility] transfered [facility] and his colleague, Dr Burk be called when patient arrives there. Also wants octreotide 100mcg bolus then 100mcg/hr in the event that patient has varices. Dicsussed with patient and his partner. He's still tremulous, will give another 1mg IV ativan. 1514: Admitted to Dr Bueno. 1gram IV rocephin, additional liter of IV NS ordered for total of 3 L at request of Dr Bueno. 1530: Dr Head at patient's bedside. Medical Screen Exam Complete: Yes Emergency Medical Condition: Yes Lab Data Result diagrams: 04/17/18 17:45 04/17/18 13:37 Lab Results 04/17/18 04/17/18 04/17/18 Range/Units 13:37 13:37 13:37 CBC w Diff Auto diff final WBC 8.2 (4.0-11.0) th/mm3 RBC 4.36 L (4.50-5.90) mil/mm3 Hgb 15.5 (13.0-17.0) gm/dL Hct 45.3 (39.0-51.0) % MCV 104.0 H (80.0-100.0) fL MCH 35.6 H (27.0-34.0) pg MCHC 34.2 (32.0-36.0) % RDW 14.2 (11.6-17.2) % Plt Count 103 L (150-450) th/mm3 MPV 9.7 (7.0-11.0) fL Neut % (Auto) 73.0 H (16.0-70.0) % Lymph % (Auto) 16.8 (9.0-44.0) % [place] % (Auto) 9.2 H (0.0-8.0) % Eos % (Auto) 0.4 (0.0-4.0) % Baso % (Auto) 0.6 (0.0-2.0) % Neut # (Auto) 6.0 (1.8-7.7) th/mm3 Lymph # (Auto) 1.4 (1.0-4.8) th/mm3 [place] # (Auto) 0.8 (0.0-0.9) th/mm3 Eos # (Auto) 0.0 (0.0-0.4) th/mm3 Baso # (Auto) 0.0 (0.0-0.2) th/mm3 WBC Differential . Differential Comment . PT 14.0 H (9.8-11.6) sec INR 1.4 Ratio APTT 25.5 (23.4-31.7) sec Sodium 140 (136-145) meq/L Potassium 4.5 (3.5-5.1) meq/L Chloride 105 (98-107) meq/L Carbon Dioxide 20.9 L (21.0-32.0) meq/L Anion Gap 14 (5-15) meq/L BUN 26 H (7-18) mg/dL Creatinine 0.85 (0.60-1.30) mg/dL Estimated GFR 88 L (>89) mL/min POC Glucose (68-110) mg/dl Random Glucose 123 H (74-106) mg/dL Calcium 7.9 L (8.5-10.1) mg/dL Magnesium 1.8 (1.5-2.5) mg/dL Total Bilirubin 1.6 H (0.2-1.0) mg/dL AST 105 H (15-37) U/L ALT 75 (12-78) U/L Alkaline Phosphatase 58 (45-117) U/L Ammonia (11-32) mcmol/L Troponin I Less than 0.02 L (0.02-0.05) ng/mL B-Natriuretic Peptide (0-100) pg/mL Total Protein 6.6 (6.4-8.2) g/dL Albumin 3.0 L (3.4-5.0) g/dL Lipase 55 L (73-393) U/L Nasal Screen MRSA (PCR) (Negative) Serum Alcohol 47 H (0-5) mg/dL Blood Type Blood Type Recheck Antibody Screen 04/17/18 04/17/18 04/17/18 Range/Units 13:37 13:37 13:37 CBC w Diff WBC (4.0-11.0) th/mm3 RBC (4.50-5.90) mil/mm3 Hgb (13.0-17.0) gm/dL Hct (39.0-51.0) % MCV (80.0-100.0) fL MCH (27.0-34.0) pg MCHC (32.0-36.0) % RDW (11.6-17.2) % Plt Count (150-450) th/mm3 MPV (7.0-11.0) fL Neut % (Auto) (16.0-70.0) % Lymph % (Auto) (9.0-44.0) % [place] % (Auto) (0.0-8.0) % Eos % (Auto) (0.0-4.0) % Baso % (Auto) (0.0-2.0) % Neut # (Auto) (1.8-7.7) th/mm3 Lymph # (Auto) (1.0-4.8) th/mm3 [place] # (Auto) (0.0-0.9) th/mm3 Eos # (Auto) (0.0-0.4) th/mm3 Baso # (Auto) (0.0-0.2) th/mm3 WBC Differential Differential Comment PT (9.8-11.6) sec INR Ratio APTT (23.4-31.7) sec Sodium (136-145) meq/L Potassium (3.5-5.1) meq/L Chloride (98-107) meq/L Carbon Dioxide (21.0-32.0) meq/L Anion Gap (5-15) meq/L BUN (7-18) mg/dL Creatinine (0.60-1.30) mg/dL Estimated GFR (>89) mL/min POC Glucose (68-110) mg/dl Random Glucose (74-106) mg/dL Calcium (8.5-10.1) mg/dL Magnesium (1.5-2.5) mg/dL Total Bilirubin (0.2-1.0) mg/dL AST (15-37) U/L ALT (12-78) U/L Alkaline Phosphatase (45-117) U/L Ammonia 48 H (11-32) mcmol/L Troponin I (0.02-0.05) ng/mL B-Natriuretic Peptide 144 H (0-100) pg/mL Total Protein (6.4-8.2) g/dL Albumin (3.4-5.0) g/dL Lipase (73-393) U/L Nasal Screen MRSA (PCR) (Negative) Serum Alcohol (0-5) mg/dL Blood Type A Positive Blood Type Recheck Required Antibody Screen Negative 04/17/18 04/17/18 04/17/18 Range/Units 17:45 17:45 18:45 CBC w Diff WBC (4.0-11.0) th/mm3 RBC (4.50-5.90) mil/mm3 Hgb 13.3 D (13.0-17.0) gm/dL Hct 39.9 (39.0-51.0) % MCV (80.0-100.0) fL MCH (27.0-34.0) pg MCHC (32.0-36.0) % RDW (11.6-17.2) % Plt Count (150-450) th/mm3 MPV (7.0-11.0) fL Neut % (Auto) (16.0-70.0) % Lymph % (Auto) (9.0-44.0) % [place] % (Auto) (0.0-8.0) % Eos % (Auto) (0.0-4.0) % Baso % (Auto) (0.0-2.0) % Neut # (Auto) (1.8-7.7) th/mm3 Lymph # (Auto) (1.0-4.8) th/mm3 [place] # (Auto) (0.0-0.9) th/mm3 Eos # (Auto) (0.0-0.4) th/mm3 Baso # (Auto) (0.0-0.2) th/mm3 WBC Differential Differential Comment PT (9.8-11.6) sec INR Ratio APTT (23.4-31.7) sec Sodium (136-145) meq/L Potassium (3.5-5.1) meq/L Chloride (98-107) meq/L Carbon Dioxide (21.0-32.0) meq/L Anion Gap (5-15) meq/L BUN (7-18) mg/dL Creatinine (0.60-1.30) mg/dL Estimated GFR (>89) mL/min POC Glucose 113 H (68-110) mg/dl Random Glucose (74-106) mg/dL Calcium (8.5-10.1) mg/dL Magnesium (1.5-2.5) mg/dL Total Bilirubin (0.2-1.0) mg/dL AST (15-37) U/L ALT (12-78) U/L Alkaline Phosphatase (45-117) U/L Ammonia (11-32) mcmol/L Troponin I (0.02-0.05) ng/mL B-Natriuretic Peptide (0-100) pg/mL Total Protein (6.4-8.2) g/dL Albumin (3.4-5.0) g/dL Lipase (73-393) U/L Nasal Screen MRSA (PCR) Not detected (Negative) Serum Alcohol (0-5) mg/dL Blood Type Blood Type Recheck Antibody Screen 04/18/18 Range/Units 02:48 CBC w Diff WBC (4.0-11.0) th/mm3 RBC (4.50-5.90) mil/mm3 Hgb (13.0-17.0) gm/dL Hct (39.0-51.0) % MCV (80.0-100.0) fL MCH (27.0-34.0) pg MCHC (32.0-36.0) % RDW (11.6-17.2) % Plt Count (150-450) th/mm3 MPV (7.0-11.0) fL Neut % (Auto) (16.0-70.0) % Lymph % (Auto) (9.0-44.0) % [place] % (Auto) (0.0-8.0) % Eos % (Auto) (0.0-4.0) % Baso % (Auto) (0.0-2.0) % Neut # (Auto) (1.8-7.7) th/mm3 Lymph # (Auto) (1.0-4.8) th/mm3 [place] # (Auto) (0.0-0.9) th/mm3 Eos # (Auto) (0.0-0.4) th/mm3 Baso # (Auto) (0.0-0.2) th/mm3 WBC Differential Differential Comment PT (9.8-11.6) sec INR Ratio APTT (23.4-31.7) sec Sodium (136-145) meq/L Potassium (3.5-5.1) meq/L Chloride (98-107) meq/L Carbon Dioxide (21.0-32.0) meq/L Anion Gap (5-15) meq/L BUN (7-18) mg/dL Creatinine (0.60-1.30) mg/dL Estimated GFR (>89) mL/min POC Glucose 135 H (68-110) mg/dl Random Glucose (74-106) mg/dL Calcium (8.5-10.1) mg/dL Magnesium (1.5-2.5) mg/dL Total Bilirubin (0.2-1.0) mg/dL AST (15-37) U/L ALT (12-78) U/L Alkaline Phosphatase (45-117) U/L Ammonia (11-32) mcmol/L Troponin I (0.02-0.05) ng/mL B-Natriuretic Peptide (0-100) pg/mL Total Protein (6.4-8.2) g/dL Albumin (3.4-5.0) g/dL Lipase (73-393) U/L Nasal Screen MRSA (PCR) (Negative) Serum Alcohol (0-5) mg/dL Blood Type Blood Type Recheck Antibody Screen Imaging Data Radiologist's impression: Chest X-Ray 04/17/18 13:22 CONCLUSION: No acute cardiopulmonary disease. ECG Data Attestation: I personally reviewed and interpreted this ECG as follows: (Left axis deviation, wave inversion in V1, ST depression in aVL, right bundle branch block, A. fib with RVR at 105,) Discharge Plan Discharge Disposition Patient Disposition: 02 Transfer To [facility] [place] Discharge Condition Condition: Stable Discharge Details Diagnosis: Upper gastrointestinal hemorrhage, Atrial fibrillation with rapid ventricular response, Alcohol withdrawal Physicians Team ED Provider: Marilin Choudhary Primary Care Provider: Michelet Serna Attending Provider: Leandro Bueno Other Providers: Radha Burk Discharge Interventions Interventions: ED Discharge Assessment Last Done: 04/17/18 17:53 Vital Signs Last Done: 04/17/18 15:43 Status ED Status: Left Department Discharge Information Discharge Date/Time: 04/17/18 17:53
--- NOTE | 2018-04-17 13:59 | XR ---
EXAM DATE: 04/17/2018 1:42 PM EST AGE/SEX: 77 years / Male INDICATIONS: Vomiting. CLINICAL DATA: This is the patient's initial encounter. Patient reports that signs and symptoms have been present for 1 day and indicates a pain score of 0/10. MEDICAL/SURGICAL HISTORY: Myocardial infarction. Coronary artery stent. COMPARISON: [facility], CHEST SINGLE AP, 08/17/2016. . FINDINGS: The lungs are clear without infiltrate, nodule, or mass. There is no appreciable pleural effusion fo r technique. Heart and mediastinum are unremarkable. CONCLUSION: No acute cardiopulmonary disease. Electronically signed by: Juanjose Ely MD 04/17/2018 1:57 PM EST
[2018-04-17 14:05] LABS: Chloride 105 meq/L (98-107); Potassium 4.5 meq/L (3.5-5.1); Sodium 140 meq/L (136-145)
[2018-04-17 14:06] LABS: Baso % (Auto) 0.6 % (0.0-2.0); Eos % (Auto) 0.4 % (0.0-4.0); Hematocrit 45.3 % (39.0-51.0); Hemoglobin 15.5 gm/dL (13.0-17.0); Lymph # (Auto) 1.4 th/mm3 (1.0-4.8); Lymph % (Auto) 16.8 % (9.0-44.0); Mean Corpuscular HGB Conc 34.2 % (32.0-36.0); Mean Corpuscular Hemoglobin 35.6 pg (27.0-34.0); Mean Platelet Volume 9.7 fL (7.0-11.0); Mono # (Auto) 0.8 th/mm3 (0.0-0.9); Mono % (Auto) 9.2 % (0.0-8.0); Platelet Count 103 th/mm3 (150-450); Red Blood Count 4.36 mil/mm3 (4.50-5.90); Red Cell Distribution Width 14.2 % (11.6-17.2); White Blood Count 8.2 th/mm3 (4.0-11.0)
[2018-04-17 14:09] LABS: Anion Gap 14 meq/L (5-15); Calcium 7.9 mg/dL (8.5-10.1); Carbon Dioxide 20.9 meq/L (21.0-32.0); Glucose,Random 123 mg/dL (74-106); Lipase 55 U/L (73-393); Magnesium 1.8 mg/dL (1.5-2.5)
[2018-04-17 14:10] LABS: Blood Urea Nitrogen 26 mg/dL (7-18)
[2018-04-17 14:12] LABS: Alanine Aminotransferase 75 U/L (12-78); Aspartate Aminotransferase 105 U/L (15-37); Glomerular Filtration Rate 88 mL/min (>89)
[2018-04-17 14:14] LABS: Alcohol 47 mg/dL (0-5); Total Protein 6.6 g/dL (6.4-8.2)
[2018-04-17 14:15] LABS: Alkaline Phosphatase 58 U/L (45-117)
[2018-04-17 14:44] LABS: Activated Partial Thrombo Time 25.5 sec (23.4-31.7); INR 1.4 Ratio
[2018-04-17] MEDS ORDERED: Sod Chloride 0.9% Inj 1,000 ML IV.SIG SCH ×2 (15:15)
[2018-04-17] MEDS: Pantoprazole Inj 80 MG in Sodium Chlor 0.9% Inj 100 ML IV.CONT SCH ×2 (15:22→23:27)
[2018-04-17] MEDS: Octreotide Inj 500 MCG in Sodium Chlor 0.9% Inj 500 ML IV.CONT SCH ×2 (15:39→21:05)
--- NOTE | 2018-04-17 16:02 | MB ---
cc: Stuart Head MD [facility],Leandro English MD DATE: 04/17/2018 REASON FOR CONSULTATION: Hematemesis, nausea, vomiting. HISTORY OF PRESENT ILLNESS: Mr. Crisostomo is a 77-year-old gentleman with heavy alcohol use for 40 years. He is also a smoker. He states he has never had any previous issues with GI bleeding. States since morning he has thrown up, multiple times, a bloody material. He brought a jar full of bloody vomited with him. He has not had any vomiting since he has been here in the hospital. He was seen in the emergency room. His vitals are stable, although his heart rate is fluctuating widely. He is extremely tremulous and appears to be going into alcohol withdrawals. He says whenever he stops drinking for a few hours he starts having symptoms of withdrawal. He has not had any melena. He has no abdominal pain. REVIEW OF SYSTEMS: No active gastrointestinal bleeding at this time. He has very tremulous. No melena or hematemesis active at this time. PAST MEDICAL HISTORY: History of coronary artery disease, history of GA. PAST SURGICAL HISTORY: Hernia repair, coronary artery stent placement, tonsillectomy, adenoidectomy. SOCIAL HISTORY: The patient smokes 1 pack of cigarettes daily. Drinks about 8 ounces of alcohol, mostly whiskey, daily. PHYSICAL EXAMINATION: GENERAL: Reveals a well-nourished man, appears very tremulous. SKIN: Flushed. HEAD AND NECK: Slightly icteric sclerae. CHEST: Bilateral air entry with rales. ABDOMEN: Soft, nontender. No hepatosplenomegaly. Bowel sounds are present. CENTRAL NERVOUS SYSTEM: Nonfocal. RECTAL: Deferred at this time. LABORATORY DATA: Reveal a hemoglobin of 15.5, platelets 103. INR is 1.4. Creatinine is 0.85. Total bilirubin 1.6. IMPRESSION: Acute gastrointestinal bleeding, possible varices, possible peptic ulcer disease, possible gastritis. The patient is also extremely tremulous with alcohol withdrawal, possibility of DTs. RECOMMENDATIONS: Case has been discussed with the ER physician. At this time the patient is being transferred to intensive care unit at [facility]. Dr. Burk will follow from there. GI plans include IV Protonix, IV octreotide, type and screen for 4 units of blood, n.p.o. with IV fluid, endoscopy is planned. Dr. Burk will follow in [facility]. Thank you for this referral. MD RICK Gomez/jb , 03:33 PM , 03:39 PM
[2018-04-17] MEDS ORDERED: Bisacodyl 10 MG Supp RECTAL PRN (16:15)
[2018-04-17] MEDS ORDERED: Haloperidol Inj 5 MG/ML Ampul IV.PUSH PRN (16:21)
[2018-04-17 17:59] LABS: Hematocrit 39.9 % (39.0-51.0); Hemoglobin 13.3 gm/dL (13.0-17.0)
[2018-04-17] MEDS: Thiamine Inj 100 MG in Sodium Chlor 0.9% Inj 100 ML IV.SIG SCH (19:58)
--- NOTE | 2018-04-17 22:42 | P.CONCC ---
History of Present Illness Service: Critical care medicine Consult date: 04/17/18 Requesting Physician: Radha Burk Reason for Consult: Critical care management of patient with upper GI bleeding Primary Care Provider: Michelet Serna MD Chief Complaint: Vomiting History of Present Illness: 77-year-old male who states he has a past medical history of myocardial infarction in 2000 with stent x2 presented to [facility] with vomiting. He states that sometime in the morning of 04/17 he began vomiting "dark liquid" and that he has vomited on 4 occasions. He had a bowel movement earlier today that he says was normal brown stool. He denies melena or bright red blood per rectum. Says he has not had any additional vomiting since presenting to the hospital. He denies prior issues with GI bleeding. Denies abdominal pain. 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 He denies taking any additional NSAIDs. He does drink 6-8 ounces of whiskey daily. He has never had a prior EGD or colonoscopy. 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 He is in A fib with rate 110s. He denies prior history of A fib. Denies CP or SOB Review of Systems All other systems reviewed negative except as stated in [facility] - History History Provided By: Patient - Medical History Medical History: Medical History (Last Updated 04/17/18 @ 13:16 by Marcia Strange RN) Myocardial infarction - Surgical History Surgical History: Surgical History (Last Updated 04/17/18 @ 23:18 by Yoavna Horta MD) H/O inguinal hernia repair History of coronary artery stent placement History of tonsillectomy and adenoidectomy - Family History Family History: Family History (Last Updated 04/17/18 @ 23:18 by Yovana Horta MD) Father Esophageal cancer Mother Dementia - Tobacco History Tobacco Use In Past 30 Days: Yes Smoking Status: Heavy tobacco smoker Tobacco Type: Cigarettes - Alcohol History How Often Do You Have a Drink Containing Alcohol: 4 or more times a week - Travel History Recent Travel in the [facility] Within the Last 8 Weeks: No Recent Travel Out of the Country Within the Last 8 Weeks: No - Immunization History Tetanus Immunization: Unsure Medications and Allergies Active Medications: Active Medications Al Hydroxide/Mg Hydroxide (Milk Of Magnesia Liq) 30 ml PO Q12H PRN PRN Reason: Mild Constipation Albuterol (Duoneb Neb (Prn)) 1 ampul NEB Q2HR NEB PRN PRN Reason: WHEEZING Bisacodyl (Dulcolax Supp) 10 mg RECTAL DAILY PRN PRN Reason: SEVERE CONSITIPATION Chlorhexidine Gluconate (Chlorhexidine 2% Cloth) 3 pack TOPICAL DAILY@0400 ASHLEY Stop: 04/23/18 03:59 Chlorhexidine Gluconate (Chlorhexidine 2% Cloth) 3 pack TOPICAL DAILY@0400 PRN PRN Reason: Extra cloth needed Stop: 04/23/18 03:59 Flumazenil (Romazecon Inj) 0.2 mg IV.PUSH Q1M PRN PRN Reason: OVERSEDATION Folic Acid (Folic Acid) 1 mg PO DAILY [facility] Stop: 04/23/18 08:59 Haloperidol Lactate (Haldol Inj) 1 mg IV.PUSH Q15M PRN PRN Reason: for severe agitation Pantoprazole Sodium 80 mg/ (Sodium Chloride) 100 mls @ 10 mls/hr IV.CONT CONT [facility] Last Admin: 04/17/18 15:22 Dose: 10 mls/hr Octreotide Acetate 500 mcg/ (Sodium Chloride) 500.5 mls @ 100.1 mls/hr IV.CONT .Q5H [facility] Last Admin: 04/17/18 21:05 Dose: 100 mcg/hr, 100.1 mls/hr Potassium Chloride/Sodium Chloride (Ns + Kcl 20 Meq Inj) 1,000 mls @ 125 mls/ hr IV.CONT .Q8H [facility] Last Admin: 04/17/18 20:03 Dose: 125 mls/hr Ceftriaxone Sodium 1,000 mg/ (Sodium Chloride) 100 mls @ 200 mls/hr IV.SIG Q24H [facility] Thiamine HCl 100 mg/ Sodium (Chloride) 101 mls @ 100 mls/hr IV.SIG Q24H [facility] Stop: 04/19/18 19:01 Last Admin: 04/17/18 19:58 Dose: 100 mls/hr Lactulose (Lactulose Liq) 30 ml PO DAILY PRN PRN Reason: SEVERE CONSITIPATION Lorazepam (Ativan) 1 mg PO Q4H PRN PRN Reason: for CIWA 8-10 Lorazepam (Ativan) 2 mg PO Q2H PRN PRN Reason: for CIWA 11-14 Lorazepam (Ativan Inj) 2 mg IV.PUSH Q2H PRN PRN Reason: for CIWA 11-14 Lorazepam (Ativan Inj) 2 mg IV.PUSH Q1H PRN PRN Reason: for CIWA 15-20 Lorazepam (Ativan Inj) 1 mg IV.PUSH Q4H PRN PRN Reason: for CIWA 8-10 Lorazepam (Ativan Inj) 2 mg IV.PUSH Q15M PRN PRN Reason: for CIWA > 20 Ondansetron HCl (Zofran Inj) 4 mg IV.PUSH Q6H PRN PRN Reason: NAUSEA OR VOMITING Senna/Docusate Sodium (Remedios-Colace) 1 tab PO BID [facility] Sennosides (Senokot) 17.2 mg PO Q12H PRN PRN Reason: Moderate Constipation Sodium Chloride (Ns Flush) 2 ml IV.FLUSH BID ASHLEY Sodium Chloride (Ns Flush) 2 ml IV.FLUSH PRN PRN PRN Reason: FLUSH AFTER USING IV ACCESS Thiamine HCl (Vitamin B1) 100 mg PO DAILY [facility] Allergies Allergy/AdvReac Type Severity Reaction Status Date / Time No Known Allergies Allergy Verified 04/17/18 13:05 Home Medications Medication Instructions Recorded Confirmed Type aspirin [Aspir-81] 162 mg PO DAILY 04/17/18 04/17/18 History magnesium 500 mg PO DAILY 04/17/18 04/17/18 History thiamine HCl (vitamin B1) [Vitamin 0 04/17/18 History B-1] Physical Exam Vital signs: Vital Signs 04/17/18 13:02 04/17/18 14:04 04/17/18 15:43 Temperature 97.6 F Pulse Rate 109 H 125 H 109 H Respiratory Rate 18 16 12 Blood Pressure 122/84 143/76 H 123/86 Pulse Oximetry 98 97 93 L 04/17/18 15:48 04/17/18 17:07 04/17/18 17:46 Temperature Pulse Rate 93 H 100 H Respiratory Rate 16 15 Blood Pressure 129/83 100/62 Pulse Oximetry 93 L 100 95 04/17/18 19:00 04/17/18 20:00 04/17/18 20:12 Temperature 98.7 F Pulse Rate 100 H 100 H Respiratory Rate 15 Blood Pressure 126/76 Pulse Oximetry 95 96 Intake & Output 04/17/18 04/17/18 04/18/18 06:59 18:59 06:59 Intake Total 2150 / 2150 500.5 / 500.5 Output Total 575 / 575 Balance 1575 / 1575 500.5 / 500.5 Weight 86 kg Intake: IV 2150 / 2150 500.5 / 500.5 SandoSTATIN Inj 500 MCG In NS 500.5 / 500.5 Inj 500 ML @ 100 MCG/HR 100.1 mls/hr IV.CONT .Q5H [facility] Rx#: [id number] Protonix Inj 80 MG In NS Inj 50 50 / 50 ML @ 600 mls/hr IV.SIG BOLUS ONE Rx#:[id number] NS Inj 1,000 ML @ 1000 mls/hr 1999 / 1999 IV.SIG BOLUS ASHLEY Rx#:[id number] Rocephin Inj 1,000 MG In NS Inj 100 / 100 100 ML @ 200 mls/hr IV.SIG ONCE ONE Rx#:[id number] Output: Urine 575 / 575 Other: Date of Last Bowel Movement 04/17/18 Narrative: GENERAL: Elderly-appearing male who is in L lat decubitus position in IMC bed, arouses to voice and answers questions appropriately. SKIN: Warm and dry. HEAD: Atraumatic. Normocephalic. EYES: Pupils equal and round, 4 mm and reactive to 2 mm bilaterally. No scleral icterus. No injection or drainage. ENT: No nasal bleeding or discharge. NECK: Trachea midline. No JVD. CARDIOVASCULAR: irreg irreg. No murmurs rubs or gallops. RESPIRATORY: Breathing comfortably with no accessory muscle use. Clear to auscultation bilaterally. No wheezes rales or rhonchi. GASTROINTESTINAL: Abdomen soft, no tenderness to palpation. No rebound or guarding. Bowel sounds are present. MUSCULOSKELETAL: Extremities without clubbing, cyanosis, or edema. No obvious deformities. NEUROLOGICAL: Awake and alert. No obvious cranial nerve deficits. Motor grossly within normal limits. Normal speech. Assessment and Plan - Problem List (1) Upper gastrointestinal hemorrhage Code(s): K92.2 - Gastrointestinal hemorrhage, unspecified Status: Acute (2) Tobacco abuse Code(s): Z72.0 - Tobacco use Status: Chronic (3) EtOH dependence Code(s): F10.20 - Alcohol dependence, uncomplicated Status: Chronic (4) Atrial fibrillation/flutter Status: Acute (5) Hyperammonemia Code(s): E72.20 - Disorder of urea cycle metabolism, unspecified Status: Acute (6) Presence of stent in coronary artery in patient with coronary artery disease Code(s): I25.10 - Atherosclerotic heart disease of [place] coronary artery without angina pectoris; Z95.5 - Presence of coronary angioplasty implant and graft Status: Chronic - Assessment and Plan Plan: NEURO: Alcohol dependence Thiamine IV/folic acid/multivitamin. CIWA protocol Alcohol cessation counseling Hyperammonemia Lactulose 30 ml po bid. F/u ammonia level. RESP: Tobacco abuse Tobacco cessation counseling Nasal cannula wean as tolerated CV: Coronary artery disease with prior myocardial infarction and stents x2 Atrial fibrillation/flutter - currently rate controlled. No known prior history of A fib. Cardizem if needed for RVR >110. Check TSH, Echo. Magnesium sulfate 1 gram IV . CHADS2-VASC score at least 2, will discuss with GI the appropriateness of custodial anticoagulation depending on findings. GI: Vomiting Upper GI bleed Continue Protonix and octreotide drips. Serial hemoglobin every 6 hours, transfuse as indicated Gastroenterology consult FEN/RENAL: Smith is in place. Monitor intake and output. Monitor electrolytes. Replace as indicated per ICU electrolyte replacement protocol. 0.9 NaCl with 20 mill equivalent of KCl per liter at 125 mL/h. ID: Rocephin 1 gram IV q24 hours for SBP prophylaxis HEME: INR is 1.4. Platelet 103. Transfuse as indicated for Hgb <8. ENDO: Blood glucose is at target. Continue to monitor. PROPH: SCDs for DVT prophylaxis. Pharmacologic DVT prophylaxis contraindicated due to concern for GI bleeding. Protonix drip as per above will provide stress ulcer prophylaxis. ACCESS: PIV FULL CODE Level 3 Consult
[2018-04-17] MEDS ORDERED: dilTIAZem Inj 125 MG in Sodium Chlor 0.9% Inj 100 ML IV.CONT PRN (23:49)
[2018-04-17] MEDS ORDERED: Potassium Phosphate 500 MG Soluble Tablet PO PRN ×2 (23:53)
[2018-04-17] MEDS ORDERED: Sodium Phosphate Inj 30 MMOL in Sodium Chlor 0.9% Inj 250 ML IV.SIG PRN (23:53)
[2018-04-17] MEDS ORDERED: Mag Sulf 1 gm/100 ml Premix 100 ML IV.SIG ONE (23:53)
[2018-04-17] MEDS ORDERED: Potassium Chlor 40 mEq Premix 40 MEQ/100 ML PIGGYBACK IV.SIG PRN ×2 (23:53)
[2018-04-17] MEDS ORDERED: Potassium Phosphate Inj 30 MMOL in Sodium Chlor 0.9% Inj 250 ML IV.SIG PRN (23:53)
[2018-04-17] MEDS ORDERED: Magnesium Oxide 400 MG Tablet PO PRN (23:53)
[2018-04-17] MEDS ORDERED: Potassium Chlor 20 mEq Premix 20 MEQ/100 ML PIGGYBACK IV.SIG PRN ×2 (23:53)
[2018-04-17] MEDS ORDERED: Magnesium Sulfate Inj 2 GM in Sodium Chlor 0.9% Inj 96 ML IV.SIG PRN (23:53)
[2018-04-17] MEDS ORDERED: Magnesium Sulfate Inj 4 GM in Sodium Chlor 0.9% Inj 92 ML IV.SIG PRN (23:53)
[2018-04-17] MEDS ORDERED: Potassium Chloride 25 MEQ Effervescent Tablet PO PRN (23:53)
[2018-04-18] MEDS: Senna/Docusate Sodium 8.6/50 MG Tablet PO SCH ×3 (01:14→22:28)
[2018-04-18] MEDS: Octreotide Inj 500 MCG in Sodium Chlor 0.9% Inj 500 ML IV.CONT SCH ×6 (02:24→22:29)
[2018-04-18] MEDS ORDERED: Chlorhexidine Gluconate 2% 1 Pack (2 Cloths) TOPICAL PRN (04:00)
[2018-04-18 05:59] LABS: Hemoglobin 13.3 gm/dL (13.0-17.0); Mean Corpuscular HGB Conc 34.1 % (32.0-36.0); Mean Corpuscular Hemoglobin 36.9 pg (27.0-34.0); Mean Corpuscular Volume 108.2 fL (80.0-100.0); Platelet Count 73 th/mm3 (150-450); Red Blood Count 3.61 mil/mm3 (4.50-5.90); Red Cell Distribution Width 14.5 % (11.6-17.2); White Blood Count 7.8 th/mm3 (4.0-11.0)
[2018-04-18] MEDS: Chlorhexidine Gluconate 2% 1 Pack (2 Cloths) TOPICAL SCH (06:03)
[2018-04-18 06:08] LABS: INR 1.4 Ratio
[2018-04-18 06:24] LABS: Alanine Aminotransferase 49 U/L (12-78); Albumin 2.5 g/dL (3.4-5.0); Alkaline Phosphatase 42 U/L (45-117); Anion Gap 7 meq/L (5-15); Aspartate Aminotransferase 56 U/L (15-37); Blood Urea Nitrogen 24 mg/dL (7-18); Calcium 6.7 mg/dL (8.5-10.1); Carbon Dioxide 26.2 meq/L (21.0-32.0); Chloride 112 meq/L (98-107); Glomerular Filtration Rate Greater Than 89 mL/min (>89); Glucose,Random 133 mg/dL (74-106); Phosphorus 2.7 mg/dL (2.5-4.9); Potassium 4.7 meq/L (3.5-5.1); Sodium 145 meq/L (136-145); Total Protein 5.1 g/dL (6.4-8.2)
--- NOTE | 2018-04-18 07:14 | P.PNCC ---
Subjective Subjective Remarks/Hospital Course: 77-year-old male who states he has a past medical history of myocardial infarction in 2000 with stent x2 presented to [facility] with vomiting. He states that sometime in the morning of 04/17 he began vomiting "dark liquid" and that he has vomited on 4 occasions. He had a bowel movement earlier today that he says was normal brown stool. He denies melena or bright red blood per rectum. Says he has not had any additional vomiting since presenting to the hospital. He denies prior issues with GI bleeding. Denies abdominal pain. 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 He denies taking any additional NSAIDs. He does drink 6-8 ounces of whiskey daily. He has never had a prior EGD or colonoscopy. 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 11.7 Patient is lying in be din NAD. On Octreotide and Protonix drips. Afebrile. Objective Vital Signs / I&O: Vital Signs 04/17/18 13:02 04/17/18 14:04 04/17/18 15:43 Temperature 97.6 F Pulse Rate 109 H 125 H 109 H Respiratory Rate 18 16 12 Blood Pressure 122/84 143/76 H 123/86 Pulse Oximetry 98 97 93 L 04/17/18 15:48 04/17/18 17:07 04/17/18 17:46 Temperature Pulse Rate 93 H 100 H Respiratory Rate 16 15 Blood Pressure 129/83 100/62 Pulse Oximetry 93 L 100 95 04/17/18 19:00 04/17/18 20:00 04/17/18 20:12 Temperature 98.7 F 98.4 F Pulse Rate 100 H 98 H Respiratory Rate 15 13 Blood Pressure 126/76 109/72 Pulse Oximetry 95 96 96 04/17/18 21:00 04/17/18 22:00 04/17/18 23:00 Temperature 98 F 98 F 97.8 F Pulse Rate 121 H 102 H 88 Respiratory Rate 23 18 11 L Blood Pressure 124/81 102/57 L Pulse Oximetry 95 100 99 04/18/18 00:00 04/18/18 01:00 04/18/18 02:00 Temperature 98 F 98.0 F Pulse Rate 88 92 H 95 H Respiratory Rate 14 13 15 Blood Pressure 102/57 L 108/55 L 117/74 Pulse Oximetry 99 100 100 04/18/18 03:00 04/18/18 04:00 04/18/18 05:00 Temperature 98 F 98.0 F 98 F Pulse Rate 91 H 93 H 93 H Respiratory Rate 14 23 26 H Blood Pressure 135/83 124/76 102/66 Pulse Oximetry 99 100 99 04/18/18 06:00 04/18/18 06:25 04/18/18 06:59 Temperature 98.4 F 98 F Pulse Rate 55 L 99 H Respiratory Rate 18 19 Blood Pressure 138/64 110/74 Pulse Oximetry 99 99 Intake & Output 04/17/18 04/18/18 04/18/18 18:59 06:59 18:59 Intake Total 2150 / 2150 3302.0 / 3302.0 Output Total 575 / 575 750 / 750 Balance 1575 / 1575 2552.0 / 2552.0 Weight 86 kg 87.5 kg Intake: IV 2150 / 2150 3302.0 / 3302.0 NS + KCl 20 mEq Inj 1,000 ML @ 1000 / 1000 125 mls/hr IV.CONT .Q8H [facility] Rx# :[id number] SandoSTATIN Inj 500 MCG In NS 1001.0 / 1001.0 Inj 500 ML @ 100 MCG/HR 100.1 mls/hr IV.CONT .Q5H [facility] Rx#: [id number] Protonix Inj 80 MG In NS Inj 100 / 100 100 ML @ 10 mls/hr IV.CONT CONT [facility] Rx#:[id number] Magnesium Sulfate 1 gm/D5W 100 100 / 100 ml Premix 100 ML @ 100 mls/hr IV.SIG ONCE ONE Rx#:[id number] Protonix Inj 80 MG In NS Inj 50 50 / 50 ML @ 600 mls/hr IV.SIG BOLUS ONE Rx#:[id number] NS Inj 1,000 ML @ 1000 mls/hr 1999 / 1999 1000 / 1000 IV.SIG BOLUS ASHLEY Rx#:[id number] Thiamine Inj 100 MG In NS Inj 101 / 101 100 ML @ 100 mls/hr IV.SIG Q24H [facility]LEY Rx#:[id number] Rocephin Inj 1,000 MG In NS Inj 100 / 100 100 ML @ 200 mls/hr IV.SIG ONCE ONE Rx#:[id number] Oral 0 / 0 Output: Urine 575 / 575 700 / 700 Stool 50 / 50 Other: Date of Last Bowel Movement 04/17/18 # Bowel Movements 1 # Incontinent Bowel Movements 1 Result Diagrams: 04/18/18 16:18 04/18/18 05:46 Other Results: Laboratory Results - last 12 hr 04/17/18 04/18/18 04/18/18 18:45 02:48 05:46 WBC 7.8 RBC 3.61 L Hgb 13.3 Hct 39.0 MCV 108.2 H D MCH 36.9 H MCHC 34.1 RDW 14.5 Plt Count 73 L MPV 9.0 Prelim Diff (Auto) Manual diff required Differential Comment . PT INR APTT Sodium Potassium Chloride Carbon Dioxide Anion Gap BUN Creatinine Estimated GFR POC Glucose 135 H Random Glucose Calcium Prot Corrected Calcium Phosphorus Magnesium Total Bilirubin AST ALT Alkaline Phosphatase Ammonia Total Protein Albumin Nasal Screen MRSA (PCR) Not detected 04/18/18 04/18/18 04/18/18 05:46 05:46 05:46 WBC RBC Hgb Hct MCV MCH MCHC RDW Plt Count MPV Prelim Diff (Auto) Differential Comment PT 14.0 H INR 1.4 APTT 26.0 Sodium 145 Potassium 4.7 Chloride 112 H Carbon Dioxide 26.2 Anion Gap 7 BUN 24 H Creatinine 0.80 Estimated GFR Greater than 89 POC Glucose Random Glucose 133 H Calcium 6.7 L* D Prot Corrected Calcium 7.7 L Phosphorus 2.7 Magnesium 2.0 Total Bilirubin 1.7 H AST 56 H ALT 49 Alkaline Phosphatase 42 L Ammonia 20 Total Protein 5.1 L D Albumin 2.5 L Nasal Screen MRSA (PCR) Imaging: Chest X-Ray 04/17/18 13:22 CONCLUSION: No acute cardiopulmonary disease. Objective Remarks: GENERAL: Patient is 77 yo lying in bed in NAD SKIN: Warm and dry. HEAD: Normocephalic. EYES: No scleral icterus. No injection or drainage. NECK: Supple, trachea midline. No JVD or lymphadenopathy. CARDIOVASCULAR: Regular rate and rhythm without murmurs, gallops, or rubs. RESPIRATORY: Breath sounds equal bilaterally. No accessory muscle use. GASTROINTESTINAL: Abdomen soft, non-tender, nondistended. MUSCULOSKELETAL: No cyanosis, or edema. Neuro: Awake and alert. Assessment and Plan - Problem List (1) Upper gastrointestinal hemorrhage Code(s): K92.2 - Gastrointestinal hemorrhage, unspecified Status: Acute (2) Tobacco abuse Code(s): Z72.0 - Tobacco use Status: Chronic (3) EtOH dependence Code(s): F10.20 - Alcohol dependence, uncomplicated Status: Chronic (4) Atrial fibrillation/flutter Status: Acute (5) Hyperammonemia Code(s): E72.20 - Disorder of urea cycle metabolism, unspecified Status: Acute (6) Presence of stent in coronary artery in patient with coronary artery disease Code(s): I25.10 - Atherosclerotic heart disease of [place] coronary artery without angina pectoris; Z95.5 - Presence of coronary angioplasty implant and graft Status: Chronic - Assessment and Plan Plan: NEURO: Alcohol dependence Thiamine IV/folic acid/multivitamin. CIWA protocol Alcohol cessation counseling Hyperammonemia Lactulose 30 ml po bid. F/u ammonia level 20 from 48 Monitor for signs of DT's. RESP: Tobacco abuse Tobacco cessation counseling Continue with oxygen keep sats >92% Bronchodilators CV: Coronary artery disease with prior myocardial infarction and stents x2 Atrial fibrillation/flutter - currently rate controlled. No known prior history of A fib. Cardizem if needed for RVR >110. Echo:The left ventricular systolic function is mildly reduced with an estimated ejection fraction of 45%. Small area of distal anteroseptal wall motion abnormality. CHADS2-VASC score at least 2, will discuss with GI the appropriateness of [facility] anticoagulation depending on findings. GI: Vomiting Upper GI bleed Continue Protonix and octreotide drips. Serial hemoglobin every 6 hours, transfuse as indicated Gastroenterology consult Check US Liver FEN/RENAL: Monitor renal function, I/O's, electrolytes replacement per protocol. ID: Rocephin 1 gram IV q24 hours for SBP prophylaxis Monitor for signs of infections ( Fever, WBC) Panculture if spikes a a fever HEME: INR is 1.4. Platelet 73 Transfuse as indicated for Hgb <8. Monitor CBC, coags ENDO: SSI if needed for glycemic control PROPH: SCDs for DVT prophylaxis. Pharmacologic DVT prophylaxis contraindicated due to concern for GI bleeding. Protonix drip as per above will provide stress ulcer prophylaxis. ACCESS: [facility] Level 3
[2018-04-18 07:43] LABS: Eosinophils 2 % (0-4); Lymphocytes 14 % (9-44); Metamyelocytes 1 % (0-1); Monocytes 7 % (0-8); Platelet Morphology Normal (Normal)
--- NOTE | 2018-04-18 10:03 | US ---
EXAM DATE: 04/18/2018 9:55 AM EST AGE/SEX: 77 years / Male INDICATIONS: Ascites. Elevated liver function tests. CLINICAL DATA: This is the patient's initial encounter. Patient reports that signs and symptoms have been present for 1 day and indicates a pain score of Nonresponsive. MEDICAL/SURGICAL HISTORY: . [place]. . Inguinal hernia repair. Coronary artery stent. Tonsillecto my. Adenoidectomy. COMPARISON: No prior exams available for comparison. MEASUREMENTS: Liver:__ 14.7 cm. Common Bile Duct:__ 3mm. Right Kidney:__ 10.7 x 4.4 x 5.4 cm. FINDINGS: Liver: Increased echotexture without focal lesion or ductal dilation. Portal Vein: Hepatopedal flow seen in portal vein. Common Duct: No intraluminal mass or stone visualized. Gallbladder: Demonstrates no wall thickening or pericholecystic fluid. No stones visualized. Pancreas: The visualized portions are within normal limits Right Kidney: Normal echotexture and cortical thickness. No mass or hydronephrosis. Other: Minimal free fluid is identified outlining the liver. CONCLUSION: 1. Abnormal heterogeneous hyperechoic hepatic echotexture characteristic of diffuse hepatocellular d isease. 2. Trace ascites. 3. No evidence of acute process, cholelithiasis or biliary obstructive disease. Electronically signed by: Jagdish Herrera MD 04/18/2018 10:01 AM EST
[2018-04-18 10:48] LABS: Hematocrit 37.1 % (39.0-51.0); Hemoglobin 12.9 gm/dL (13.0-17.0)
[2018-04-18] MEDS: Folic Acid 1 MG Tablet PO SCH (13:13)
--- NOTE | 2018-04-18 13:36 | ECHRPT ---
Indication: AFIB AND FLUTTER CONCLUSIONS Normal left ventricular size. Wall thickness is normal. The left ventricular systolic function is mildly reduced with an estimated ejection fraction of 45% Small area of distal anteroseptal wall motion abnormality. [id number] mitral valve regurgitation. The estimated pulmonary arterial pressure is 48 mmHg. There is moderate tricuspid regurgitation. BP: / HR: Rhythm: MEASUREMENTS (Male / Female) Normal Values Technical Quality: 2D ECHO LV Diastolic Diameter PLAX 4.0 cm 4.2 - 5.9 / 3.9 - 5.3 cm LV Systolic Diameter PLAX 3.1 cm IVS Diastolic Thickness 0.7 cm 0.6 - 1.0 / 0.6 - 0.9 cm LVPW Diastolic Thickness 0.9 cm 0.6 - 1.0 / 0.6 - 0.9 cm LV Relative Wall Thickness 0.4 RV Internal Dim ED PLAX 3.1 cm LVOT Diameter 2.0 cm LV Ejection Fraction MOD 4C 38.1 % LV Ejection Fraction 4C AL 37.3 % LV Ejection Fraction MOD 2C 34.5 % LV Ejection Fraction 2C AL 37.0 % M-MODE Aortic Root Diameter MM 2.9 cm LA Systolic Diameter MM 5.6 cm LA Ao Ratio MM 1.9 AV Cusp Separation MM 2.2 cm DOPPLER AV Peak Velocity 141.0 cm/s AV Peak Gradient 8.0 mmHg LVOT Peak Velocity 80.0 cm/s LVOT Peak Gradient 2.6 mmHg AV Area Cont Eq pk 1.8 cm Mitral E Point Velocity 92.3 cm/s LV E' Lateral Velocity 11.8 cm/s Mitral E to LV E' Lateral Ratio 7.8 LV E' Septal Velocity 8.6 cm/s Mitral E to LV E' Septal Ratio 10.8 TR Peak Velocity 307.0 cm/s TR Peak Gradient 37.7 mmHg Right Atrial Pressure 10.0 mmHg Pulmonary Artery Systolic Pressu 47.7 mmHg Right Ventricular Systolic Press 47.7 mmHg PV Peak Velocity 48.9 cm/s PV Peak Gradient 1.0 mmHg FINDINGS LEFT VENTRICLE Normal left ventricular size. Wall thickness is normal. The left ventricular systolic function is mildly reduced with an estimated ejection fraction of 45%. Small area of distal anteroseptal wall motion abnormality. RIGHT VENTRICLE Normal right ventricular size and systolic function. LEFT ATRIUM The left atrial size is normal. RIGHT ATRIUM The right atrial size is normal. ATRIAL SEPTUM Normal atrial septal thickness without atrial level shunting by limited color doppler interrogation. AORTA The aortic root and proximal ascending aorta are normal in size on limited imaging. MITRAL VALVE [id number]-[id number] mitral valve regurgitation. AORTIC VALVE Trileaflet aortic valve. No aortic valve stenosis or regurgitation. TRICUSPID VALVE The estimated pulmonary arterial pressure is 48 mmHg. There is moderate tricuspid regurgitation. PULMONARY VALVE No pulmonary valve regurgitation or stenosis. VESSELS The inferior vena cava is normal in size. PERICARDIUM No pericardial effusion. Moira Perdomo MD, FACC (Electronically Signed) Final Date:18 April 2018 13:34
[2018-04-18] MEDS ORDERED: Succinylcholine Inj 100 MG/5 ML Syringe IV.PUSH ONE (14:30)
[2018-04-18] MEDS ORDERED: Lidocaine PF 1% Inj 5 ML Syringe OTHER ONE (14:30)
--- NOTE | 2018-04-18 15:08 | GIPROC ---
[facility] [address] [facility] [facility], [address] EGD PROCEDURE REPORT EXAM DATE: 04/18/2018 PATIENT NAME: Wade Crisostomo MR #: [id number] BIRTHDATE: 1940 ATTENDING: Radha Burk MD ORDER #: [id number] CREDIT VERIFIER: Pedrito Farrar and Misti Carlson STATUS: inpatient INDICATIONS: The patient is a 77 yr old male here for an EGD due to gi bleeding PROCEDURE PERFORMED: EGD w/ biopsy MEDICATIONS: Per Anesthesia and None. TOPICAL ANESTHETIC: none CONSENT: The patient understands the risks and benefits of the procedure and understands that these risks include, but are not limited to: sedation, allergic reaction, infection, perforation and/or bleeding. Alternative means of evaluation and treatment include, among others: physical exam, x-rays, and/or surgical intervention. The patient elects to proceed with this endoscopic procedure. medical equipment was checked for proper function. Hand hygiene and appropriate measures for infection prevention was taken. After the risks, benefits and alternatives of the procedure were thoroughly explained, Informed consent was verified, confirmed and timeout was successfully executed by the treatment team. The patient was anesthetized with topical anesthesia and the Pentax [id number] endoscope was introduced through the mouth and advanced to the second portion of the duodenum. Retroflexed views revealed a hiatal hernia The gastroscope was then slowly withdrawn and removed. Duodenitis duodenla bulb-biopsy gastrtis antrum-biopsy esophageal varices garde 1. ADVERSE EVENTS: There were no complications. IMPRESSIONS: 1. Duodenitis duodenla bulb-biopsy gastrtis antrum-biopsy esophageal varices garde 1 2. Retroflexed views revealed a hiatal hernia RECOMMENDATIONS: 1. Await biopsy results. Biopsy results will not be ready for 7-10 days. If you don't hear from us in two weeks, call our office for biopsy results. 2. Anti-reflux regimen 3. Continue PPI PATIENT CONDITION: stable DISPOSITION: Inpatient REPEAT EXAM: Return 8 weeks EGD Radha Burk MD eSigned: Radha Burk MD 04/18/2018 3:08 PM cc: PATIENT NAME: Wade Crisostomo MR#: [id number]
[2018-04-18 16:47] LABS: Hematocrit 36.1 % (39.0-51.0); Hemoglobin 12.5 gm/dL (13.0-17.0)
[2018-04-18] MEDS: Thiamine Inj 100 MG in Sodium Chlor 0.9% Inj 100 ML IV.SIG SCH (18:07)
--- NOTE | 2018-04-18 19:12 | ECG ---
Date Performed: 04/17/2018 Time Performed: 23:01:24 PTAGE: 77 years EKG: Atrial fibrillation with rapid ventricular response. 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
--- NOTE | 2018-04-18 19:54 | ECG ---
Date Performed: 04/17/2018 Time Performed: 14:19:23 PTAGE: 77 years EKG: ATRIAL FIBRILLATION WITH RAPID VENTRICULAR RESPONSE RIGHT BUNDLE BRANCH BLOCK LEFT ANTERIOR FASCICULAR BLOCK POSSIBLE SEPTAL MYOCARDIAL INFARCTION ABNORMAL ECG PREVIOUS TRACING : 08/17/2016 22.09 Since the previous tracing, no significant change noted DOCTOR: Edy Dye Interpretating Date/Time 04/18/2018 19:52:59
[2018-04-18] MEDS: Pantoprazole Inj 80 MG in Sodium Chlor 0.9% Inj 100 ML IV.CONT SCH (20:05)
[2018-04-18 22:34] LABS: Hematocrit 37.3 % (39.0-51.0); Hemoglobin 12.9 gm/dL (13.0-17.0)
[2018-04-19] MEDS: Octreotide Inj 500 MCG in Sodium Chlor 0.9% Inj 500 ML IV.CONT SCH ×4 (01:04→11:50)
[2018-04-19] MEDS: Chlorhexidine Gluconate 2% 1 Pack (2 Cloths) TOPICAL SCH (04:49)
[2018-04-19 05:49] LABS: Baso % (Auto) 0.4 % (0.0-2.0); Eos # (Auto) 0.3 th/mm3 (0.0-0.4); Eos % (Auto) 3.6 % (0.0-4.0); Hematocrit 37.1 % (39.0-51.0); Hemoglobin 12.6 gm/dL (13.0-17.0); Lymph # (Auto) 1.3 th/mm3 (1.0-4.8); Lymph % (Auto) 17.7 % (9.0-44.0); Mean Corpuscular HGB Conc 33.9 % (32.0-36.0); Mean Corpuscular Hemoglobin 37.4 pg (27.0-34.0); Mean Corpuscular Volume 110.1 fL (80.0-100.0); Mean Platelet Volume 10.1 fL (7.0-11.0); Mono # (Auto) 0.4 th/mm3 (0.0-0.9); Mono % (Auto) 5.3 % (0.0-8.0); Neut # (Auto) 5.5 th/mm3 (1.8-7.7); Platelet Count 70 th/mm3 (150-450); Red Blood Count 3.37 mil/mm3 (4.50-5.90); Red Cell Distribution Width 14.7 % (11.6-17.2); White Blood Count 7.5 th/mm3 (4.0-11.0)
[2018-04-19] MEDS: Pantoprazole Inj 80 MG in Sodium Chlor 0.9% Inj 100 ML IV.CONT SCH (06:04)
[2018-04-19 06:17] LABS: Anion Gap 11 meq/L (5-15)
[2018-04-19 06:27] LABS: Alanine Aminotransferase 41 U/L (12-78); Albumin 2.8 g/dL (3.4-5.0); Alkaline Phosphatase 47 U/L (45-117); Aspartate Aminotransferase 42 U/L (15-37); Blood Urea Nitrogen 18 mg/dL (7-18); Calcium 7.2 mg/dL (8.5-10.1); Carbon Dioxide 22.3 meq/L (21.0-32.0); Chloride 109 meq/L (98-107); Glomerular Filtration Rate Greater Than 89 mL/min (>89); Glucose,Random 121 mg/dL (74-106); Magnesium 1.8 mg/dL (1.5-2.5); Phosphorus 2.3 mg/dL (2.5-4.9); Potassium 3.8 meq/L (3.5-5.1); Sodium 142 meq/L (136-145); Total Protein 5.6 g/dL (6.4-8.2)
[2018-04-19 08:07] LABS: Platelet Morphology Normal (Normal)
--- NOTE | 2018-04-19 08:08 | P.PNCC ---
Subjective Subjective Remarks/Hospital Course: 77-year-old male who states he has a past medical history of myocardial infarction in 2000 with stent x2 presented to [facility] with vomiting. He states that sometime in the morning of 04/17 he began vomiting "dark liquid" and that he has vomited on 4 occasions. He had a bowel movement earlier today that he says was normal brown stool. He denies melena or bright red blood per rectum. Says he has not had any additional vomiting since presenting to the hospital. He denies prior issues with GI bleeding. Denies abdominal pain. He states he takes 2 baby aspirin per day as he was instructed to do so by his station installer after having an myocardial infarction in 2000. He denies taking any additional NSAIDs. He does drink 6-8 ounces of whiskey daily. He has never had a prior EGD or colonoscopy. He has been transferred to [facility] from [place] for spring bender consult due to upper GI bleeding and high risk for ETOH withdrawal. 04.18 Patient is lying in be din NAD. On Octreotide and Protonix drips. Afebrile. 04/19 Patient is lying in bed in NAD, remains on Protonix and Octreotide drips. s /p EGD yesterday showed Duodenitis,gastritis and esophageal varices garde 1. Awake and alert. Given Cardizem 15mg IVx1 for tachycardia now HR controlled. Objective Vital Signs / I&O: Vital Signs 04/18/18 08:52 04/18/18 09:00 04/18/18 10:00 Temperature Pulse Rate 92 H 109 H Respiratory Rate 18 18 Blood Pressure Pulse Oximetry 99 97 91 L 04/18/18 11:00 04/18/18 12:00 04/18/18 13:00 Temperature 98 F Pulse Rate 115 H 105 H 114 H Respiratory Rate 16 20 22 Blood Pressure 127/84 144/94 H 112/72 Pulse Oximetry 92 L 95 96 04/18/18 13:42 04/18/18 15:13 04/18/18 16:00 Temperature 98.4 F 97.7 F 98 F Pulse Rate 104 H 112 H 109 H Respiratory Rate 15 14 18 Blood Pressure 121/85 143/79 H 119/68 Pulse Oximetry 95 96 95 04/18/18 17:00 04/18/18 18:00 04/18/18 19:00 Temperature 98.2 F Pulse Rate 111 H 123 H 117 H Respiratory Rate 20 16 32 H Blood Pressure 118/78 121/84 116/75 Pulse Oximetry 97 95 94 L 04/18/18 20:00 04/18/18 21:00 04/18/18 22:00 Temperature 98.2 F 98.2 F 98.2 F Pulse Rate 114 H 114 H 108 H Respiratory Rate 24 28 H 23 Blood Pressure 115/76 115/76 127/76 Pulse Oximetry 94 L 93 L 99 04/18/18 23:00 04/19/18 00:00 04/19/18 01:00 Temperature 98 F 98.3 F Pulse Rate 126 H 92 H 89 Respiratory Rate 26 H 25 H 22 Blood Pressure 109/74 107/68 106/68 Pulse Oximetry 94 L 97 100 04/19/18 02:00 04/19/18 03:00 04/19/18 03:58 Temperature Pulse Rate 95 H 62 98 H Respiratory Rate 22 21 21 Blood Pressure 112/68 153/75 H Pulse Oximetry 96 96 04/19/18 04:00 04/19/18 05:00 04/19/18 06:00 Temperature 98.2 F Pulse Rate 63 70 66 Respiratory Rate 19 24 25 H Blood Pressure 144/72 H 162/88 H 149/67 H Pulse Oximetry 96 95 97 04/19/18 06:45 04/19/18 07:00 Temperature Pulse Rate 69 Respiratory Rate 24 Blood Pressure 146/68 H Pulse Oximetry 97 93 L Intake & Output 04/18/18 04/19/18 04/19/18 18:59 06:59 18:59 Intake Total 2301.5 / 2301.5 3201.5 / 3201.5 Output Total 800 / 800 900 / 900 Balance 1501.5 / 1501.5 2301.5 / 2301.5 Weight 88.7 kg Intake: IV 1501.5 / 1501.5 2801.5 / 2801.5 SandoSTATIN Inj 500 MCG In NS 1501.5 / 1501.5 1501.5 / 1501.5 Inj 500 ML @ 100 MCG/HR 100.1 mls/hr IV.CONT .Q5H ASHLEY Rx#: [id number] Protonix Inj 80 MG In NS Inj 200 / 200 100 ML @ 10 mls/hr IV.CONT CONT ASHLEY Rx#:[id number] Rocephin Inj 1,000 MG In NS Inj 100 / 100 100 ML @ 200 mls/hr IV.SIG Q24H ASHLEY Rx#:[id number] Oral 500 / 500 400 / 400 Anesthesia Amount 300 / 300 Output: Urine 800 / 800 900 / 900 Stool 0 / 0 Urine/Stool Mix 0 / 0 Other: Date of Last Bowel Movement 04/18/18 04/18/18 # Bowel Movements 1 0 # Incontinent Bowel Movements 0 Result Diagrams: 04/19/18 11:43 04/19/18 04:35 Other Results: Laboratory Results - last 12 hr 04/18/18 04/19/18 04/19/18 22:13 00:14 04:35 WBC 7.5 RBC 3.37 L Hgb 12.9 L 12.6 L Hct 37.3 L 37.1 L MCV 110.1 H MCH 37.4 H MCHC 33.9 RDW 14.7 Plt Count 70 L MPV 10.1 Prelim Diff (Auto) Slide review pending Neut % (Auto) 73.0 H Lymph % (Auto) 17.7 [place] % (Auto) 5.3 Eos % (Auto) 3.6 Baso % (Auto) 0.4 Neut # (Auto) 5.5 Lymph # (Auto) 1.3 [place] # (Auto) 0.4 Eos # (Auto) 0.3 Baso # (Auto) 0.0 Differential Comment . Sodium Potassium Chloride Carbon Dioxide Anion Gap BUN Creatinine Estimated GFR POC Glucose 136 H Random Glucose Calcium Prot Corrected Calcium Phosphorus Magnesium Total Bilirubin AST ALT Alkaline Phosphatase Total Protein Albumin 04/19/18 04:35 WBC RBC Hgb Hct MCV MCH MCHC RDW Plt Count MPV Prelim Diff (Auto) Neut % (Auto) Lymph % (Auto) [place] % (Auto) Eos % (Auto) Baso % (Auto) Neut # (Auto) Lymph # (Auto) [place] # (Auto) Eos # (Auto) Baso # (Auto) Differential Comment Sodium 142 Potassium 3.8 D Chloride 109 H Carbon Dioxide 22.3 Anion Gap 11 BUN 18 Creatinine 0.81 Estimated GFR Greater than 89 POC Glucose Random Glucose 121 H Calcium 7.2 L* Prot Corrected Calcium 8.0 L Phosphorus 2.3 L Magnesium 1.8 Total Bilirubin 2.2 H AST 42 H ALT 41 Alkaline Phosphatase 47 Total Protein 5.6 L Albumin 2.8 L Imaging: Chest X-Ray 04/17/18 13:22 CONCLUSION: No acute cardiopulmonary disease. Liver Ultrasound 04/18/18 00:00 CONCLUSION: 1. Abnormal heterogeneous hyperechoic hepatic echotexture characteristic of diffuse hepatocellular disease. 2. Trace ascites. 3. No evidence of acute process, cholelithiasis or biliary obstructive disease. Objective Remarks: GENERAL: Patient is 77 yo lying in bed in NAD SKIN: Warm and dry. HEAD: Normocephalic. EYES: No scleral icterus. No injection or drainage. NECK: Supple, trachea midline. No JVD or lymphadenopathy. CARDIOVASCULAR: Regular rate and rhythm without murmurs, gallops, or rubs. RESPIRATORY: Breath sounds equal bilaterally. No accessory muscle use. GASTROINTESTINAL: Abdomen soft, non-tender, nondistended. MUSCULOSKELETAL: No cyanosis, or edema. Neuro: Awake and alert. Assessment and Plan - Problem List (1) Upper gastrointestinal hemorrhage Code(s): K92.2 - Gastrointestinal hemorrhage, unspecified Status: Acute (2) Tobacco abuse Code(s): Z72.0 - Tobacco use Status: Chronic (3) EtOH dependence Code(s): F10.20 - Alcohol dependence, uncomplicated Status: Chronic (4) Atrial fibrillation/flutter Status: Acute (5) Hyperammonemia Code(s): E72.20 - Disorder of urea cycle metabolism, unspecified Status: Acute (6) Presence of stent in coronary artery in patient with coronary artery disease Code(s): I25.10 - Atherosclerotic heart disease of [place] coronary artery without angina pectoris; Z95.5 - Presence of coronary angioplasty implant and graft Status: Chronic - Assessment and Plan Plan: NEURO: Alcohol dependence Thiamine IV/folic acid/multivitamin. [facility] protocol Alcohol cessation counseling Hyperammonemia Lactulose 30 ml po bid. F/u ammonia level 20 from 48 Monitor for signs of DT's. RESP: Tobacco abuse Tobacco cessation counseling Continue with oxygen keep sats >92% Bronchodilators CV: Coronary artery disease with prior myocardial infarction and stents x2 Atrial fibrillation/flutter - currently rate controlled. No known prior history of A fib. Cardizem if needed for RVR >110. Echo:The left ventricular systolic function is mildly reduced with an estimated ejection fraction of 45%. Small area of distal anteroseptal wall motion abnormality. GI: Vomiting Upper GI bleed Continue Protonix and octreotide drips. s/p EGD 04/18: Duodenitis,gastritis and esophageal varices garde 1 On PO diet US Liver: diffuse hepatocellular disease. Trace ascites. No evidence of acute process, cholelithiasis or biliary obstructive disease. : Monitor renal function, I/O's, electrolytes replacement per protocol. Will need Phos replacement today. ID: Rocephin 1 gram IV q24 hours for SBP prophylaxis Monitor for signs of infections ( Fever, WBC) Panculture if spikes a a fever HEME: Monitor CBC, coags, transfuse if Hgb <7 ENDO: SSI if needed for glycemic control PROPH: SCDs for DVT prophylaxis. Pharmacologic DVT prophylaxis contraindicated due to concern for GI bleeding. Protonix drip as per above will provide stress ulcer prophylaxis. ACCESS: PIV Will sign off and transfer care to [facility] Level 2
[2018-04-19] MEDS: Folic Acid 1 MG Tablet PO SCH (09:35)
[2018-04-19] MEDS: Senna/Docusate Sodium 8.6/50 MG Tablet PO SCH ×2 (09:37→21:20)
[2018-04-19 12:11] LABS: Hematocrit 33.2 % (39.0-51.0); Hemoglobin 11.5 gm/dL (13.0-17.0)
--- NOTE | 2018-04-19 14:17 | P.PNGI ---
Subjective Interval history: Pt resting in bed, oriented x 3 but agitated No BM since EGD No further nausea or vomiting Denies abdominal pain Tolerating diet <Kelsey Brady - Last Filed: 04/19/18 14:02> Physical Exam Vital signs: Vital Signs 04/18/18 15:13 04/18/18 15:55 04/18/18 16:00 Temperature 97.7 F 98 F Pulse Rate 112 H 112 H Respiratory Rate 14 25 H Blood Pressure 143/79 H 119/68 Pulse Oximetry 96 95 94 L 04/18/18 17:00 04/18/18 18:00 04/18/18 18:37 Temperature Pulse Rate 119 H 113 H 111 H Respiratory Rate 40 H 25 H 26 H Blood Pressure 118/78 121/84 121/84 Pulse Oximetry 87 L 95 95 04/18/18 19:00 04/18/18 20:00 04/18/18 21:00 Temperature 98.2 F 98.2 F 98.2 F Pulse Rate 117 H 108 H 114 H Respiratory Rate 32 H 21 32 H Blood Pressure 116/75 96/54 L 115/76 Pulse Oximetry 94 L 96 90 L 04/18/18 22:00 04/18/18 23:00 04/19/18 00:00 Temperature 98.2 F 98 F Pulse Rate 108 H 126 H 92 H Respiratory Rate 23 36 H 25 H Blood Pressure 127/76 109/74 107/68 Pulse Oximetry 99 83 L 97 04/19/18 01:00 04/19/18 02:00 04/19/18 03:00 Temperature 98.3 F Pulse Rate 89 95 H 94 H Respiratory Rate 22 26 H 22 Blood Pressure 106/68 112/68 122/69 Pulse Oximetry 100 98 99 04/19/18 03:58 04/19/18 04:00 04/19/18 05:00 Temperature 98.2 F Pulse Rate 98 H 108 H 100 H Respiratory Rate 21 26 H 23 Blood Pressure 151/79 H 109/60 Pulse Oximetry 86 L 100 04/19/18 06:00 04/19/18 06:45 04/19/18 07:00 Temperature Pulse Rate 98 H 98 H Respiratory Rate 16 20 Blood Pressure 105/69 114/79 Pulse Oximetry 98 97 97 04/19/18 08:00 04/19/18 09:00 04/19/18 10:00 Temperature Pulse Rate 96 H 101 H 95 H Respiratory Rate 16 31 H 17 Blood Pressure 94/56 L 103/77 113/78 Pulse Oximetry 97 99 99 04/19/18 11:00 04/19/18 12:00 04/19/18 13:00 Temperature Pulse Rate 92 H 90 94 H Respiratory Rate 20 17 29 H Blood Pressure 119/83 113/76 117/67 Pulse Oximetry 100 100 98 Intake & Output 04/18/18 04/19/18 04/19/18 18:59 06:59 18:59 Intake Total 2301.5 / 2301.5 3201.5 / 3201.5 500.5 / 500.5 Output Total 800 / 800 900 / 900 Balance 1501.5 / 1501.5 2301.5 / 2301.5 500.5 / 500.5 Weight 88.7 kg Intake: IV 1501.5 / 1501.5 2801.5 / 2801.5 500.5 / 500.5 SandoSTATIN Inj 500 MCG In NS 1501.5 / 1501.5 1501.5 / 1501.5 500.5 / 500.5 Inj 500 ML @ 100 MCG/HR 100.1 mls/hr IV.CONT .Q5H ASHLEY Rx#: [id number] Protonix Inj 80 MG In NS Inj 200 / 200 100 ML @ 10 mls/hr IV.CONT CONT ASHLEY Rx#:[id number] Rocephin Inj 1,000 MG In NS Inj 100 / 100 100 ML @ 200 mls/hr IV.SIG Q24H ASHLEY Rx#:[id number] Oral 500 / 500 400 / 400 Anesthesia Amount 300 / 300 Output: Urine 800 / 800 900 / 900 Stool 0 / 0 Urine/Stool Mix 0 / 0 Other: Date of Last Bowel Movement 04/18/18 04/18/18 # Bowel Movements 1 0 # Incontinent Bowel Movements 0 - Constitutional no acute distress - Routine HEENT Exam Head: Present: normocephalic, atraumatic Eye: Present: conjunctival icterus - Routine Respiratory Exam Absent: accessory muscle use - Routine Abdominal Exam Present: soft, normoactive bowel sounds. Absent: tenderness, distended - Routine Skin Exam Present: dry, warm - Routine Neurological Exam Present: alert, oriented X3 <Kelsey Brady - Last Filed: 04/19/18 14:02> Vital signs: Vital Signs 11/07/18 22:00 04/18/18 23:00 04/19/18 00:00 Temperature 98.2 F 98 F Pulse Rate 108 H 126 H 92 H Respiratory Rate 23 36 H 25 H Blood Pressure 127/76 109/74 107/68 Pulse Oximetry 99 83 L 97 04/19/18 01:00 04/19/18 02:00 04/19/18 03:00 Temperature 98.3 F Pulse Rate 89 95 H 94 H Respiratory Rate 22 26 H 22 Blood Pressure 106/68 112/68 122/69 Pulse Oximetry 100 98 99 04/19/18 03:58 04/19/18 04:00 04/19/18 05:00 Temperature 98.2 F Pulse Rate 98 H 108 H 100 H Respiratory Rate 21 26 H 23 Blood Pressure 151/79 H 109/60 Pulse Oximetry 86 L 100 04/19/18 06:00 04/19/18 06:45 04/19/18 07:00 Temperature Pulse Rate 98 H 98 H Respiratory Rate 16 20 Blood Pressure 105/69 114/79 Pulse Oximetry 98 97 97 04/19/18 08:00 04/19/18 09:00 04/19/18 10:00 Temperature Pulse Rate 96 H 101 H 95 H Respiratory Rate 16 31 H 17 Blood Pressure 94/56 L 103/77 113/78 Pulse Oximetry 97 99 99 04/19/18 11:00 04/19/18 12:00 04/19/18 13:00 Temperature Pulse Rate 92 H 90 94 H Respiratory Rate 20 17 29 H Blood Pressure 119/83 113/76 117/67 Pulse Oximetry 100 100 98 04/19/18 14:00 04/19/18 15:00 04/19/18 16:00 Temperature Pulse Rate 96 H 117 H 94 H Respiratory Rate 23 34 H 29 H Blood Pressure 133/82 148/65 H 129/78 Pulse Oximetry 100 98 99 04/19/18 17:00 04/19/18 18:00 04/19/18 19:00 Temperature Pulse Rate 99 H 100 H 110 H Respiratory Rate 29 H 30 H 26 H Blood Pressure 107/82 115/74 117/90 Pulse Oximetry 100 99 94 L 04/19/18 20:00 04/19/18 20:45 Temperature Pulse Rate 145 H Respiratory Rate 40 H Blood Pressure 148/87 H Pulse Oximetry 92 L 100 Intake & Output 04/19/18 04/19/18 04/20/18 06:59 18:59 06:59 Intake Total 3201.5 / 3201.5 902.0 / 902.0 Output Total 900 / 900 420 / 420 Balance 2301.5 / 2301.5 482.0 / 482.0 Weight 88.7 kg Intake: IV 2801.5 / 2801.5 902.0 / 902.0 SandoSTATIN Inj 500 MCG In NS 1501.5 / 1501.5 701.0 / 701.0 Inj 500 ML @ 100 MCG/HR 100.1 mls/hr IV.CONT .Q5H ASHLEY Rx#: [id number] Protonix Inj 80 MG In NS Inj 200 / 200 0 / 0 100 ML @ 10 mls/hr IV.CONT CONT ASHLEY Rx#:[id number] Thiamine Inj 100 MG In NS Inj 101 / 101 100 ML @ 100 mls/hr IV.SIG Q24H ASHLEY Rx#:[id number] Rocephin Inj 1,000 MG In NS Inj 100 / 100 100 / 100 100 ML @ 200 mls/hr IV.SIG Q24H ASHLEY Rx#:[id number] Oral 400 / 400 Output: Urine 900 / 900 420 / 420 Stool 0 / 0 Urine/Stool Mix 0 / 0 Other: # Voids 2 Date of Last Bowel Movement 04/18/18 04/18/18 # Bowel Movements 0 # Incontinent Bowel Movements 0 <Radha Burk - Last Filed: 04/19/18 21:49> Results - Labs CBC & Chem 7: 04/19/18 11:43 04/19/18 04:35 Laboratory Results - last 24 hr 04/18/18 04/18/18 04/18/18 16:18 18:41 22:13 WBC RBC Hgb 12.5 L 12.9 L Hct 36.1 L 37.3 L MCV MCH MCHC RDW Plt Count MPV Prelim Diff (Auto) Neut % (Auto) Lymph % (Auto) [place] % (Auto) Eos % (Auto) Baso % (Auto) Neut # (Auto) Lymph # (Auto) [place] # (Auto) Eos # (Auto) Baso # (Auto) WBC Differential Diff Scan Differential Comment Platelet Estimate Platelet Morphology Sodium Potassium Chloride Carbon Dioxide Anion Gap BUN Creatinine Estimated GFR POC Glucose 155 H Random Glucose Calcium Prot Corrected Calcium Phosphorus Magnesium Total Bilirubin AST ALT Alkaline Phosphatase Total Protein Albumin 04/19/18 04/19/18 04/19/18 00:14 04:35 04:35 WBC 7.5 RBC 3.37 L Hgb 12.6 L Hct 37.1 L MCV 110.1 H MCH 37.4 H MCHC 33.9 RDW 14.7 Plt Count 70 L MPV 10.1 Prelim Diff (Auto) Slide review pending Neut % (Auto) 73.0 H Lymph % (Auto) 17.7 [place] % (Auto) 5.3 Eos % (Auto) 3.6 Baso % (Auto) 0.4 Neut # (Auto) 5.5 Lymph # (Auto) 1.3 [place] # (Auto) 0.4 Eos # (Auto) 0.3 Baso # (Auto) 0.0 WBC Differential . Diff Scan Auto diff confirmed Differential Comment . Platelet Estimate Low L Platelet Morphology Normal Sodium 142 Potassium 3.8 D Chloride 109 H Carbon Dioxide 22.3 Anion Gap 11 BUN 18 Creatinine 0.81 Estimated GFR Greater than 89 POC Glucose 136 H Random Glucose 121 H Calcium 7.2 L* Prot Corrected Calcium 8.0 L Phosphorus 2.3 L Magnesium 1.8 Total Bilirubin 2.2 H AST 42 H ALT 41 Alkaline Phosphatase 47 Total Protein 5.6 L Albumin 2.8 L 04/19/18 04/19/18 11:43 11:47 WBC RBC Hgb 11.5 L Hct 33.2 L MCV MCH MCHC RDW Plt Count MPV Prelim Diff (Auto) Neut % (Auto) Lymph % (Auto) [place] % (Auto) Eos % (Auto) Baso % (Auto) Neut # (Auto) Lymph # (Auto) [place] # (Auto) Eos # (Auto) Baso # (Auto) WBC Differential Diff Scan Differential Comment Platelet Estimate Platelet Morphology Sodium Potassium Chloride Carbon Dioxide Anion Gap BUN Creatinine Estimated GFR POC Glucose 147 H Random Glucose Calcium Prot Corrected Calcium Phosphorus Magnesium Total Bilirubin AST ALT Alkaline Phosphatase Total Protein Albumin <Kelsey Brady - Last Filed: 04/19/18 14:02> - Labs CBC & Chem 7: 04/19/18 11:43 04/19/18 04:35 Laboratory Results - last 24 hr 04/18/18 04/19/18 04/19/18 22:13 00:14 04:35 WBC 7.5 RBC 3.37 L Hgb 12.9 L 12.6 L Hct 37.3 L 37.1 L MCV 110.1 H MCH 37.4 H MCHC 33.9 RDW 14.7 Plt Count 70 L MPV 10.1 Prelim Diff (Auto) Slide review pending Neut % (Auto) 73.0 H Lymph % (Auto) 17.7 [place] % (Auto) 5.3 Eos % (Auto) 3.6 Baso % (Auto) 0.4 Neut # (Auto) 5.5 Lymph # (Auto) 1.3 [place] # (Auto) 0.4 Eos # (Auto) 0.3 Baso # (Auto) 0.0 WBC Differential . Diff Scan Auto diff confirmed Differential Comment . Platelet Estimate Low L Platelet Morphology Normal Sodium Potassium Chloride Carbon Dioxide Anion Gap BUN Creatinine Estimated GFR POC Glucose 136 H Random Glucose Calcium Prot Corrected Calcium Phosphorus Magnesium Total Bilirubin AST ALT Alkaline Phosphatase Total Protein Albumin 04/19/18 04/19/18 04/19/18 04:35 11:43 11:47 WBC RBC Hgb 11.5 L Hct 33.2 L MCV MCH MCHC RDW Plt Count MPV Prelim Diff (Auto) Neut % (Auto) Lymph % (Auto) [place] % (Auto) Eos % (Auto) Baso % (Auto) Neut # (Auto) Lymph # (Auto) [place] # (Auto) Eos # (Auto) Baso # (Auto) WBC Differential Diff Scan Differential Comment Platelet Estimate Platelet Morphology Sodium 142 Potassium 3.8 D Chloride 109 H Carbon Dioxide 22.3 Anion Gap 11 BUN 18 Creatinine 0.81 Estimated GFR Greater than 89 POC Glucose 147 H Random Glucose 121 H Calcium 7.2 L* Prot Corrected Calcium 8.0 L Phosphorus 2.3 L Magnesium 1.8 Total Bilirubin 2.2 H AST 42 H ALT 41 Alkaline Phosphatase 47 Total Protein 5.6 L Albumin 2.8 L <Radha Burk - Last Filed: 04/19/18 21:49> Assessment and Plan - Plan Assessment: - Upper GIB- Presented to [facility] on 04/17 with complaints of hematemesis in the setting of ETOH abuse- pt denied any previous history of GIB EGD (04/18) duodenitis duodenal bulb, gastritis in the gastric antrum, esophageal varices grade 1, hiatal hernia - Elevated LFTs- pattern consistent with ETOH abuse- Likely cirrhosis Coagulopathy, thrombocytopenia, hypoalbuminemia T bili-2.2 AST-42 ALT-41 Alk phos-47 Liver US (04/18) Abnormal heterogeneous hyperechoic hepatic echotexture characteristic of diffuse hepatocellular disease. Trace ascites. No evidence of acute process, cholelithiasis or biliary obstructive disease. Plan: EGD biopsy pending Diet as tolerated Protonix BID Monitor H/H Counseled on ETOH cessation Alcohol withdraw protocol Thiamine Pt may benefit from Inderal if vital signs allow Our service will sign off, please reconsult as needed Have pt follow up with GI after DC This pt has been seen and examined by myself and Dr. Burk and this note is written on her behalf <Kelsey Brady - Last Filed: 04/19/18 14:02> - Attending Attestation agree with above <Radha Burk - Last Filed: 04/19/18 21:49>
[2018-04-19] MEDS: Thiamine Inj 100 MG in Sodium Chlor 0.9% Inj 100 ML IV.SIG SCH (17:00)
[2018-04-20] MEDS: Chlorhexidine Gluconate 2% 1 Pack (2 Cloths) TOPICAL SCH (04:50)
[2018-04-20 06:26] LABS: Baso % (Auto) 0.4 % (0.0-2.0); Eos # (Auto) 0.3 th/mm3 (0.0-0.4); Eos % (Auto) 5.3 % (0.0-4.0); Hematocrit 36.3 % (39.0-51.0); Hemoglobin 12.7 gm/dL (13.0-17.0); Lymph # (Auto) 0.8 th/mm3 (1.0-4.8); Lymph % (Auto) 12.9 % (9.0-44.0); Mean Corpuscular HGB Conc 34.9 % (32.0-36.0); Mean Corpuscular Hemoglobin 37.5 pg (27.0-34.0); Mean Corpuscular Volume 107.5 fL (80.0-100.0); Mean Platelet Volume 10.6 fL (7.0-11.0); Mono # (Auto) 0.5 th/mm3 (0.0-0.9); Mono % (Auto) 7.2 % (0.0-8.0); Neut # (Auto) 4.9 th/mm3 (1.8-7.7); Neut % (Auto) 74.2 % (16.0-70.0); Platelet Count 54 th/mm3 (150-450); Red Blood Count 3.38 mil/mm3 (4.50-5.90); Red Cell Distribution Width 14.3 % (11.6-17.2); White Blood Count 6.5 th/mm3 (4.0-11.0)
[2018-04-20 06:51] LABS: Alanine Aminotransferase 38 U/L (12-78); Albumin 2.7 g/dL (3.4-5.0); Alkaline Phosphatase 47 U/L (45-117); Anion Gap 9 meq/L (5-15); Aspartate Aminotransferase 42 U/L (15-37); Blood Urea Nitrogen 14 mg/dL (7-18); Calcium 7.3 mg/dL (8.5-10.1); Carbon Dioxide 20.8 meq/L (21.0-32.0); Chloride 109 meq/L (98-107); Glomerular Filtration Rate Greater Than 89 mL/min (>89); Glucose,Random 107 mg/dL (74-106); Magnesium 1.8 mg/dL (1.5-2.5); Phosphorus 2.6 mg/dL (2.5-4.9); Potassium 4.2 meq/L (3.5-5.1); Total Protein 5.8 g/dL (6.4-8.2)
[2018-04-20 07:00] LABS: Sodium 139 meq/L (136-145)
[2018-04-20 07:33] LABS: Platelet Morphology Normal (Normal)
--- NOTE | 2018-04-20 08:21 | P.PNIM ---
Subjective Interval history: Follow-up for GI bleeding No GI bleeding, status post endoscopy April 18, still having episodes of withdrawal, receiving Ativan, sleeping, easily arousable, no complaints, denies any chest pain or shortness of breath. No abdominal pain. Physical Exam Vital signs: Vital Signs 04/19/18 09:00 04/19/18 10:00 04/19/18 11:00 Temperature Pulse Rate 101 H 95 H 92 H Respiratory Rate 31 H 17 20 Blood Pressure 103/77 113/78 119/83 Pulse Oximetry 99 99 100 04/19/18 12:00 04/19/18 13:00 04/19/18 14:00 Temperature Pulse Rate 90 94 H 96 H Respiratory Rate 17 29 H 23 Blood Pressure 113/76 117/67 133/82 Pulse Oximetry 100 98 100 04/19/18 15:00 04/19/18 16:00 04/19/18 17:00 Temperature Pulse Rate 117 H 94 H 99 H Respiratory Rate 34 H 29 H 29 H Blood Pressure 148/65 H 129/78 107/82 Pulse Oximetry 98 99 100 04/19/18 18:00 04/19/18 19:00 04/19/18 20:00 Temperature Pulse Rate 100 H 110 H 145 H Respiratory Rate 30 H 26 H 40 H Blood Pressure 115/74 117/90 148/87 H Pulse Oximetry 99 94 L 92 L 04/19/18 20:45 04/19/18 21:00 04/19/18 22:00 Temperature Pulse Rate 104 H 107 H Respiratory Rate 25 H 26 H Blood Pressure 127/91 H 130/99 H Pulse Oximetry 100 100 100 04/19/18 23:00 04/20/18 00:00 04/20/18 01:00 Temperature 97.9 F Pulse Rate 101 H 99 H 108 H Respiratory Rate 21 19 27 H Blood Pressure 125/90 107/77 139/96 H Pulse Oximetry 98 97 96 04/20/18 02:00 04/20/18 03:00 04/20/18 04:00 Temperature Pulse Rate 99 H 99 H 97 H Respiratory Rate 21 20 16 Blood Pressure 132/83 128/86 101/60 Pulse Oximetry 98 91 L 95 04/20/18 05:00 04/20/18 06:00 04/20/18 07:00 Temperature 98.7 F Pulse Rate 98 H 103 H 96 H Respiratory Rate 15 24 16 Blood Pressure 103/64 131/89 121/85 Pulse Oximetry 88 L 82 L 97 04/20/18 08:00 Temperature Pulse Rate 97 H Respiratory Rate 19 Blood Pressure 142/92 H Pulse Oximetry 98 Intake & Output 04/19/18 04/20/18 04/20/18 18:59 06:59 18:59 Intake Total 902.0 / 902.0 200 / 200 Output Total 420 / 420 350 / 350 Balance 482.0 / 482.0 -150 / -150 Weight 89.2 kg Intake: IV 902.0 / 902.0 SandoSTATIN Inj 500 MCG In NS 701.0 / 701.0 Inj 500 ML @ 100 MCG/HR 100.1 mls/hr IV.CONT .Q5H ASHLEY Rx#: [id number] Protonix Inj 80 MG In NS Inj 0 / 0 100 ML @ 10 mls/hr IV.CONT CONT ASHLEY Rx#:[id number] Thiamine Inj 100 MG In NS Inj 101 / 101 100 ML @ 100 mls/hr IV.SIG Q24H ASHLEY Rx#:[id number] Rocephin Inj 1,000 MG In NS Inj 100 / 100 100 ML @ 200 mls/hr IV.SIG Q24H ASHLEY Rx#:[id number] Oral 200 / 200 Output: Urine 420 / 420 350 / 350 Other: # Voids 2 # Incontinent Voids 2 Date of Last Bowel Movement 04/18/18 04/18/18 04/18/18 Narrative: Not in distress, sleeping Pupils equal round and reactive, pink conjunctival Irregular rhythm, normal rate, no murmurs Occasional wheezing, occasional rhonchi Abdomen soft, nontender, nondistended Trace edema Sleeping, easily arousable, oriented to self, place, person, knows his birthday. Moves extremities grossly. Results - Labs CBC & Chem 7: 04/20/18 05:15 04/20/18 05:15 Laboratory Results - last 24 hr 04/19/18 04/19/18 04/19/18 11:43 11:47 22:36 WBC RBC Hgb 11.5 L Hct 33.2 L MCV MCH MCHC RDW Plt Count MPV Prelim Diff (Auto) Neut % (Auto) Lymph % (Auto) [place] % (Auto) Eos % (Auto) Baso % (Auto) Neut # (Auto) Lymph # (Auto) [place] # (Auto) Eos # (Auto) Baso # (Auto) WBC Differential Diff Scan Differential Comment Platelet Estimate Platelet Morphology Hematology Comments Sodium Potassium Chloride Carbon Dioxide Anion Gap BUN Creatinine Estimated GFR POC Glucose 147 H 128 H Random Glucose Calcium Prot Corrected Calcium Phosphorus Magnesium Total Bilirubin AST ALT Alkaline Phosphatase Total Protein Albumin 04/20/18 04/20/18 05:15 05:15 WBC 6.5 RBC 3.38 L Hgb 12.7 L Hct 36.3 L MCV 107.5 H MCH 37.5 H MCHC 34.9 RDW 14.3 Plt Count 54 L MPV 10.6 Prelim Diff (Auto) Slide review pending Neut % (Auto) 74.2 H Lymph % (Auto) 12.9 [place] % (Auto) 7.2 Eos % (Auto) 5.3 H Baso % (Auto) 0.4 Neut # (Auto) 4.9 Lymph # (Auto) 0.[address] # (Auto) 0.5 Eos # (Auto) 0.3 Baso # (Auto) 0.0 WBC Differential . Diff Scan Auto diff confirmed Differential Comment . Platelet Estimate Low L Platelet Morphology Normal Hematology Comments Sodium 139 Potassium 4.2 Chloride 109 H Carbon Dioxide 20.8 L Anion Gap 9 BUN 14 Creatinine 0.65 Estimated GFR Greater than 89 POC Glucose Random Glucose 107 H Calcium 7.3 L* Prot Corrected Calcium 8.0 L Phosphorus 2.6 Magnesium 1.8 Total Bilirubin 2.3 H AST 42 H ALT 38 Alkaline Phosphatase 47 Total Protein 5.8 L Albumin 2.7 L Assessment and Plan - Plan This is a 77-year-old male with history of alcohol abuse, presenting with vomiting and questionable upper GI bleeding. Upper GI bleeding, vomiting -GI was consulted, status post EGD 04/18/2018 showed duodenitis gastritis and esophageal varices grade 1. Follow-up biopsy results, continue Protonix twice a day, GI signed off. Follow-up as outpatient. Recheck CBC tomorrow. Alcohol abuse-continue thiamine, folic acid and multivitamins. Alcohol withdrawal-continue Rohit protocol, alcohol cessation Hepatic encephalopathy-continue lactulose, repeat ammonia normal. Tobacco use-tobacco cessation counseling, oxygen support as needed, duo nebs as needed and scheduled Coronary artery disease with prior myocardial infarction and stents x2 Atrial fibrillation/flutter - currently rate controlled. No known prior history of A fib. Cardizem if needed for RVR >110. Echo:The left ventricular systolic function is mildly reduced with an estimated ejection fraction of 45%. Small area of distal anteroseptal wall motion abnormality. Will be started on Inderal, no anticoagulation given risk for bleeding. CHADSVasC=2 for age Possible portal hypertension-with evidence of portal hypertension with gastric varices and alcohol abuse. Start Inderal. Liver ultrasound showed diffuse hepatocellular disease, trace ascites. Trace ascites-ceftriaxone for SBP prophylaxis, WBC, no fever, DC Rocephin for now. DVT prophylaxis: SCDs, low risk, patient also has varices and concern for GI bleeding, no pharmacological prophylaxis. Transfer out of ICU. PT eval, discharge planning, consult case management.
[2018-04-20] MEDS: Folic Acid 1 MG Tablet PO SCH (08:29)
[2018-04-20] MEDS: Senna/Docusate Sodium 8.6/50 MG Tablet PO SCH ×2 (08:30→21:28)
[2018-04-20] MEDS ORDERED: Calcium Gluconate Inj 1 GM in Dextrose 5% in Water Inj 100 ML IV.SIG ONE ×2 (09:30)
[2018-04-20] MEDS: Propranolol 10 MG Tablet PO SCH ×3 (10:23→18:40)
[2018-04-20] MEDS: LORazepam 1 MG Tablet PO PRN ×2 (18:50→23:18)
[2018-04-21] MEDS: Chlorhexidine Gluconate 2% 1 Pack (2 Cloths) TOPICAL SCH (04:46)
[2018-04-21 07:23] LABS: Baso % (Auto) 0.6 % (0.0-2.0); Eos # (Auto) 0.3 th/mm3 (0.0-0.4); Eos % (Auto) 3.6 % (0.0-4.0); Hematocrit 34.8 % (39.0-51.0); Hemoglobin 12.2 gm/dL (13.0-17.0); Lymph # (Auto) 0.9 th/mm3 (1.0-4.8); Mean Corpuscular Hemoglobin 37.7 pg (27.0-34.0); Mean Corpuscular Volume 107.7 fL (80.0-100.0); Mean Platelet Volume 10.5 fL (7.0-11.0); Mono # (Auto) 0.8 th/mm3 (0.0-0.9); Neut # (Auto) 5.2 th/mm3 (1.8-7.7); Neut % (Auto) 72.8 % (16.0-70.0); Platelet Count 94 th/mm3 (150-450); Red Blood Count 3.23 mil/mm3 (4.50-5.90); Red Cell Distribution Width 14.1 % (11.6-17.2); White Blood Count 7.1 th/mm3 (4.0-11.0)
[2018-04-21 07:46] LABS: Albumin 2.7 g/dL (3.4-5.0); Anion Gap 12 meq/L (5-15); Aspartate Aminotransferase 25 U/L (15-37); Blood Urea Nitrogen 18 mg/dL (7-18); Calcium 7.7 mg/dL (8.5-10.1); Carbon Dioxide 20.7 meq/L (21.0-32.0); Chloride 109 meq/L (98-107); Glomerular Filtration Rate Greater Than 89 mL/min (>89); Glucose,Random 115 mg/dL (74-106); Magnesium 1.9 mg/dL (1.5-2.5); Potassium 3.7 meq/L (3.5-5.1); Sodium 142 meq/L (136-145)
[2018-04-21 07:47] LABS: Alanine Aminotransferase 30 U/L (12-78); Phosphorus 2.3 mg/dL (2.5-4.9)
[2018-04-21 07:49] LABS: Alkaline Phosphatase 48 U/L (45-117); Total Protein 5.6 g/dL (6.4-8.2)
[2018-04-21 08:13] LABS: Lymphocytes 13 % (9-44); Metamyelocytes 1 % (0-1); Monocytes 7 % (0-8); Myelocytes 2 % (0-0); Platelet Morphology Normal (Normal)
[2018-04-21] MEDS: LORazepam 1 MG Tablet PO PRN (10:46)
[2018-04-21] MEDS: Folic Acid 1 MG Tablet PO SCH (10:47)
[2018-04-21] MEDS: Propranolol 10 MG Tablet PO SCH ×3 (10:47→18:01)
[2018-04-21] MEDS: Senna/Docusate Sodium 8.6/50 MG Tablet PO SCH ×2 (10:47→20:47)
--- NOTE | 2018-04-21 11:20 | P.PNIM ---
Subjective Interval history: Pt seen and examined for f/u UGIB and EtOH abuse. The patient reportedly fell "three times" this morning around 4AM. He states he was getting out of bed and he hit his head on the ground. He states he had a "lump" but can no longer feel it. Endorses some soreness in the back of his neck. Had no LOC. Currently he reports feeling "blah." He states he is weak and just not feeling well. He refuses to go to a rehab or SNF. He denies CP, SOB, abdominal pain, N/V. He required Ativan overnight and this morning for CIWA score of 8 as the patient was shaky and talking to himself. Physical Exam Vital signs: Vital Signs 04/20/18 12:00 04/20/18 13:00 04/20/18 13:05 Temperature 98.1 F Pulse Rate 83 87 109 H Respiratory Rate 16 16 18 Blood Pressure 114/72 113/85 Pulse Oximetry 94 L 96 04/20/18 13:14 04/20/18 14:00 04/20/18 15:00 Temperature Pulse Rate 87 92 H Respiratory Rate 20 33 H Blood Pressure 129/82 150/77 H Pulse Oximetry 96 94 L 97 04/20/18 16:00 04/20/18 20:00 04/21/18 00:00 Temperature 97.2 F L 97.3 F L 98.2 F Pulse Rate 89 87 89 Respiratory Rate 18 18 18 Blood Pressure 148/72 H 105/70 114/78 Pulse Oximetry 96 93 L 96 04/21/18 04:00 04/21/18 04:34 04/21/18 05:34 Temperature 97.1 F L 97.4 F L 98.3 F Pulse Rate 98 H 98 H 91 H Respiratory Rate 18 18 18 Blood Pressure 136/91 H 136/91 H 111/80 Pulse Oximetry 94 L 93 L 04/21/18 06:34 04/21/18 08:00 Temperature 98.1 F 97.5 F L Pulse Rate 93 H 101 H Respiratory Rate 16 Blood Pressure 119/76 126/95 H Pulse Oximetry 95 Intake & Output 04/20/18 04/21/18 04/21/18 18:59 06:59 18:59 Output Total 450 / 450 Balance -450 / -450 Weight 88.7 kg Output: Urine 450 / 450 Other: Date of Last Bowel Movement 04/18/18 Narrative: GENERAL: Elderly male sitting up in chair in NAD. SKIN: Warm and dry. Ecchymoses and purpura over extremities. HEENT: No palpable lumps over the skull. No gross trauma visualized. Pupils equal and round. MMM. No scleral icterus. NECK: Mild paraspinous cervical muscles TTP. HEART: IRR no m/r/g. LUNGS: CTAB without wheezes or crackles. ABDOMEN: +BS, soft, NT, ND. EXTREMITIES: No LE edema. Calves supple and nontender. NEURO: Awake and alert. Results - Labs CBC & Chem 7: 04/21/18 06:29 04/21/18 06:29 Laboratory Results - last 24 hr 04/20/18 04/20/18 04/21/18 13:49 16:45 06:29 WBC 7.1 RBC 3.23 L Hgb 12.2 L Hct 34.8 L MCV 107.7 H MCH 37.7 H MCHC 35.0 RDW 14.1 Plt Count 94 L D MPV 10.5 Prelim Diff (Auto) Slide review pending Neut % (Auto) 72.8 H Lymph % (Auto) 12.0 [place] % (Auto) 11.0 H Eos % (Auto) 3.6 Baso % (Auto) 0.6 Neut # (Auto) 5.2 Lymph # (Auto) 0.9 L [place] # (Auto) 0.8 Eos # (Auto) 0.3 Baso # (Auto) 0.0 WBC Differential Manual diff final Seg Neuts % (Manual) 77 H Lymphocytes % (Manual) 13 Monocytes % (Manual) 7 Metamyelocytes % (Man) 1 Myelocytes % (Man) 2 H Abs Neuts (Manual) 5.7 Differential Comment . Platelet Estimate Low L Platelet Morphology Normal Sodium Potassium Chloride Carbon Dioxide Anion Gap BUN Creatinine Estimated GFR POC Glucose 150 H 121 H Random Glucose Calcium Phosphorus Magnesium Total Bilirubin AST ALT Alkaline Phosphatase Total Protein Albumin 04/21/18 04/21/18 06:29 07:40 WBC RBC Hgb Hct MCV MCH MCHC RDW Plt Count MPV Prelim Diff (Auto) Neut % (Auto) Lymph % (Auto) [place] % (Auto) Eos % (Auto) Baso % (Auto) Neut # (Auto) Lymph # (Auto) [place] # (Auto) Eos # (Auto) Baso # (Auto) WBC Differential Seg Neuts % (Manual) Lymphocytes % (Manual) Monocytes % (Manual) Metamyelocytes % (Man) Myelocytes % (Man) Abs Neuts (Manual) Differential Comment Platelet Estimate Platelet Morphology Sodium 142 Potassium 3.7 Chloride 109 H Carbon Dioxide 20.7 L Anion Gap 12 BUN 18 Creatinine 0.73 Estimated GFR Greater than 89 POC Glucose 121 H Random Glucose 115 H Calcium 7.7 L Phosphorus 2.3 L Magnesium 1.9 Total Bilirubin 2.0 H AST 25 ALT 30 Alkaline Phosphatase 48 Total Protein 5.6 L Albumin 2.7 L Assessment and Plan - Assessment (1) Upper gastrointestinal hemorrhage Code(s): K92.2 - Gastrointestinal hemorrhage, unspecified Status: Acute (2) EtOH dependence Code(s): F10.20 - Alcohol dependence, uncomplicated Status: Chronic (3) Alcohol withdrawal Code(s): F10.239 - Alcohol dependence with withdrawal, unspecified Status: Acute - Plan 77 year old male with history of EtOH abuse admitted on 04/17 for upper GI bleed. 1. UGIB - GI consulted - EGD 04/18 showing duodenitis, gastritis, and grade 1 esophageal varices - Continue Protonix - GI has signed off, f/u as outpatient - H&H has remained stable - Started on Inderal for varices 2. EtOH abuse with withdrawal - CIWA protocol, required Ativan overnight and this AM - Counseled on EtOH cessation - Continue rally pack 3. Hepatic encephalopathy - Stigmata of liver disease including thrombocytopenia, elevated MCV, elevated INR, elevated Tbili - Continue lactulose - Repeat ammonia level normal 4. Tobacco abuse - Counseling previously provided - Nebulizers PRN 5. CAD - H/o of prior GA and stents - Started on Inderal - Start Lisinopril 6. Atrial fibrillation/flutter - Currently rate-controlled - 2D echo with mildly reduced EF of 45%, start Lisinopril - Continue Inderal - CHADSVASc score is 2 for age but risk of anticoagulation outweigh benefit given his risk of bleeding with his varices hepatic coagulopathy (INR 1.4, thrombocytopenia) 7. Fall - PT following patient, recommending rehab - Check CT head - Counseled patient to not get up from bed without asking for assistance DVT prophylaxis: SCDs, chemical anticoagulation C/I given hepatic coagulopathy and recent GIB with evidence of varices Discharge Planning: Hopefully in next 1-2 days if patient's CIWA improves and he remains clinically stable (3) Alcohol withdrawal Qualifiers: Complication of substance-induced condition: uncomplicated Qualified Code(s) : F10.230 - Alcohol dependence with withdrawal, uncomplicated
--- NOTE | 2018-04-21 13:46 | P.DCO ---
- Diagnosis (1) Upper gastrointestinal hemorrhage Status: Acute (2) EtOH dependence Status: Chronic (3) Atrial fibrillation/flutter Status: Acute - Physical Therapy Order: Evaluate and treat, Improve ambulation, Strength and gait training - Home Health Nursing Order: Signs/symptoms of disease process, Nursing assessment with vital signs - Case Management Consult Yes - Certification I have seen patient Wade Crisostomo on 04/21/18. My clinical findings support the need for the requested home health care services because: Deconditioned with increased weakness, Limited ability to care for self, High risk of falls I certify that my clinical findings support that this patient is homebound because: Impaired cognitive ability/safety, Unsteady gait/balance, Unsafe to leave home unassisted
--- NOTE | 2018-04-21 13:58 | CT ---
EXAM DATE: 04/21/2018 1:51 PM EST AGE/SEX: 77 years / Male INDICATIONS: Altered mental status. CLINICAL DATA: This is the patient's initial encounter. Patient reports that signs and symptoms have been present for 1 day and indicates a pain score of 0/10. MEDICAL/SURGICAL HISTORY: Cardiovascular disease. Mesenteric ischemia. Coronary artery stent. Ton sillectomy. RADIATION DOSE: 55.91 CTDI (mGy) COMPARISON: [facility], CT BRAIN W/O CONTRAST, 08/17/2016. . TECHNIQUE: CT of the head without contrast. Using automated exposure control and adjustment of the mA and/or kV according to patient size, radiation dose was kept as low as reasonably achievable to ob tain optimal diagnostic quality images. DICOM format image data is available electronically for revi ew and comparison. FINDINGS: Cerebrum: The ventricles are normal for age. No evidence of midline shift, mass lesion, hemorrhage or acute infarction. No extraaxial fluid collections are seen. Posterior Fossa: The cerebellum and brainstem are intact. The 4th ventricle is midline. The cerebe llopontine angle is unremarkable. Extracranial: The visualized portion of the orbits is intact. Skull: The calvaria is intact. No evidence of skull fracture. CONCLUSION: No acute intracranial abnormality demonstrated. . Electronically signed by: Victor M Mendieta MD 04/21/2018 1:57 PM EST
[2018-04-22] MEDS: Chlorhexidine Gluconate 2% 1 Pack (2 Cloths) TOPICAL SCH (07:00)
[2018-04-22] MEDS ORDERED: Lisinopril 10 MG Tablet PO SCH (09:00)
[2018-04-22] MEDS: Folic Acid 1 MG Tablet PO SCH (09:03)
[2018-04-22] MEDS: Propranolol 10 MG Tablet PO SCH ×2 (09:03→12:46)
[2018-04-22] MEDS: Senna/Docusate Sodium 8.6/50 MG Tablet PO SCH (09:03)
--- NOTE | 2018-04-22 09:09 | P.PNIM ---
Subjective Interval history: Pt seen and examined for f/u UGIB and EtOH abuse. present at the bedside. Patient reports overall feeling better. Fell again last night getting out of bed despite staff repeatedly telling him not to get up on his own. He states the end of the bed 'collapsed' and he slowly found his way on the ground. He states he did not hit his head or sustain any injuries. He is resistant to go to a rehab or SNF. He states he doesn't plan on quitting drinking because "I'm going to somehow anyways." His is trying to encourage him to quit drinking and go to SNF on discharge. She is scared he is going to fall at home and they're going to wind back up in the hospital. He has not required any Ativan in almost 24 hours. He denies CP, SOB, abdominal pain, N/V. He states in the hospital his appetite has been poor but he has been trying to eat. Physical Exam Vital signs: Vital Signs 04/21/18 12:00 04/21/18 12:35 04/21/18 16:00 Temperature 97.1 F L 97.7 F Pulse Rate 91 H 93 H Respiratory Rate 16 16 Blood Pressure 106/70 113/84 Pulse Oximetry 98 94 L 97 04/21/18 19:35 04/21/18 20:00 04/22/18 00:00 Temperature 97.9 F 98.0 F Pulse Rate 101 H 97 H Respiratory Rate 20 18 Blood Pressure 114/79 111/56 L Pulse Oximetry 94 L 93 L 93 L 04/22/18 02:00 04/22/18 02:07 04/22/18 03:31 Temperature 97.1 F L 97.1 F L 97.3 F L Pulse Rate 91 H 91 H 84 Respiratory Rate 19 19 18 Blood Pressure 127/70 127/70 109/74 Pulse Oximetry 94 L 92 L 04/22/18 04:45 04/22/18 05:40 Temperature 97.8 F 97.6 F Pulse Rate 89 89 Respiratory Rate 18 18 Blood Pressure 134/73 136/83 Pulse Oximetry 93 L 93 L Intake & Output 04/21/18 04/22/18 04/22/18 18:59 06:59 18:59 Intake Total 480 / 480 Output Total 200 / 200 200 / 200 Balance -200 / -200 280 / 280 Weight 88.9 kg Intake: Oral 480 / 480 Output: Urine 200 / 200 200 / 200 Other: # Voids 2 Narrative: GENERAL: Elderly male laying in bed in NAD. SKIN: Warm and dry. Ecchymoses and purpura over extremities. Superficial skin tear over right elbow. HEENT: No palpable lumps over the skull. No gross trauma visualized. Pupils equal and round. MMM. No scleral icterus. HEART: IRR no m/r/g. LUNGS: CTAB without wheezes or crackles. ABDOMEN: +BS, soft, NT, ND. EXTREMITIES: No LE edema. Calves supple and nontender. NEURO: Awake and alert. Results - Labs CBC & Chem 7: 04/21/18 06:29 04/21/18 06:29 Laboratory Results - last 24 hr 04/21/18 04/21/18 15:36 21:39 POC Glucose 126 H 141 H - Imaging Impressions Head CT 04/21/18 00:00 CONCLUSION: No acute intracranial abnormality demonstrated. . Assessment and Plan - Assessment (1) Upper gastrointestinal hemorrhage Code(s): K92.2 - Gastrointestinal hemorrhage, unspecified Status: Acute (2) EtOH dependence Code(s): F10.20 - Alcohol dependence, uncomplicated Status: Chronic (3) Atrial fibrillation/flutter Status: Acute (4) Alcohol withdrawal Code(s): F10.239 - Alcohol dependence with withdrawal, unspecified Status: Acute - Plan 77 year old male with history of EtOH abuse admitted on 04/17 for upper GI bleed. 1. UGIB - GI consulted - EGD 04/18 showing duodenitis, gastritis, and grade 1 esophageal varices - Continue Protonix - GI has signed off, f/u as outpatient - H&H has remained stable - Started on Inderal for varices 2. EtOH abuse with withdrawal - CIWA protocol - Hasn't required Ativan in ~24 hours - Doesn't seem to be actively withdrawing - Counseled extensively on EtOH cessation but patient resistant - Continue rally pack 3. Hepatic encephalopathy - Stigmata of liver disease including palmar erythema, varices, thrombocytopenia , elevated MCV, elevated INR, elevated Tbili - Continue lactulose - Repeat ammonia level normal 4. Tobacco abuse - Counseling previously provided - Nebulizers PRN 5. CAD - H/o of prior IN and stents - 2D echo with EF 45% - Started on Inderal - Started Lisinopril 6. Atrial fibrillation/flutter - Currently rate-controlled - 2D echo with mildly reduced EF of 45% - Continue Inderal - CHADSVASc score is 2 for age but risk of anticoagulation outweigh benefit given his risk of bleeding with his varices hepatic coagulopathy (INR 1.4, thrombocytopenia) 7. Frequent falls, physical debility/deconditioning - PT following patient, recommending rehab - CT head negative after falling early yesterday morning and hitting head - Counseled patient to not get up from bed without asking for assistance - Counseled on the importance of a safe discharge and that all providers involve are recommending rehab DVT prophylaxis: SCDs, chemical anticoagulation C/I given hepatic coagulopathy and recent GIB with evidence of varices Discussed Condition With: Patient and Discharge Planning: Medically clear for discharge. Case management assisting with D/C needs. Trying to get patient to agree to go to a SNF/rehab otherwise will do [facility] (4) Alcohol withdrawal Qualifiers: Complication of substance-induced condition: uncomplicated Qualified Code(s) : F10.230 - Alcohol dependence with withdrawal, uncomplicated
--- NOTE | 2018-04-22 13:38 | P.DS ---
Date of admission: 04/17/18 15:15 Primary care physician: Michelet Serna MD Attending physician on discharge: Sheyla Vieira Anticipated date of discharge: 04/22/18 Brief History from admission: 77-year-old male who states he has a past medical history of myocardial infarction in 2000 with stent x2 presented to [facility] with vomiting. He states that sometime in the morning of 04/17 he began vomiting "dark liquid" and that he has vomited on 4 occasions. He had a bowel movement earlier today that he says was normal brown stool. He denies melena or bright red blood per rectum. Says he has not had any additional vomiting since presenting to the hospital. He denies prior issues with GI bleeding. Denies abdominal pain. 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 He denies taking any additional NSAIDs. He does drink 6-8 ounces of whiskey daily. He has never had a prior EGD or colonoscopy. He has been transferred to [facility] from [place] for wire lather consult due to upper GI bleeding and high risk for ETOH withdrawal. He is in A fib with rate 110s. He denies prior history of A fib. Denies CP or SOB Patient update on day of discharge: Pt seen and examined for f/u UGIB and EtOH abuse. The patient reportedly fell "three times" this morning around 4AM. He states he was getting out of bed and he hit his head on the ground. He states he had a "lump" but can no longer feel it. Endorses some soreness in the back of his neck. Had no LOC. Currently he reports feeling "blah." He states he is weak and just not feeling well. He refuses to go to a rehab or SNF. He denies CP, SOB, abdominal pain, N/V. He required Ativan overnight and this morning for CIWA score of 8 as the patient was shaky and talking to himself. DS: Diagnosis - Discharge Diagnosis (1) Upper gastrointestinal hemorrhage Status: Acute (2) EtOH dependence Status: Chronic (3) Atrial fibrillation/flutter Status: Acute (4) Alcohol withdrawal Status: Acute DS: Medications - Discharge Medications Prescriptions: folic acid 1 mg PO DAILY #30 tab lactulose 30 ml PO DAILY 30 Days #900 ml lisinopril 10 mg PO DAILY #30 tab multivitamin with folic acid [Thera] 1 tab PO DAILY #30 tab pantoprazole 40 mg PO BID #60 tab propranolol 10 mg PO TID #90 tab thiamine HCl (vitamin B1) 100 mg PO DAILY #30 tab DS: Summary Hospital Course: 77 year old male with history of EtOH abuse admitted on 04/17 for upper GI bleed. GI was consulted and patient underwent EGD on 04/18 showing duodenitis, gastritis, and grade 1 esophageal varices. He was treated with PPI and started on propranolol for varices. CIOR protocol was in place for EtOH withdrawal. Patient had several falls out of his bed during hospitalization with normal work-up. PT recommended rehab. The patient was also treated for AFIB during admission. 2D echo showed EF of 45%. Anticoagulation contraindicated given his frequent falls, EtOH abuse, and hepatic coagulopathy. The patient was medically stabilized and discharged to a SNF on 04/22. r - Time Spent with Patient Total time spent providing and/or coordinating discharge services: Greater than 30 minutes Exam Vital signs: Vital Signs 04/21/18 16:00 04/21/18 19:35 04/21/18 20:00 Temperature 97.7 F 97.9 F Pulse Rate 93 H 101 H Respiratory Rate 16 20 Blood Pressure 113/84 114/79 Pulse Oximetry 97 94 L 93 L 04/22/18 00:00 04/22/18 02:00 04/22/18 02:07 Temperature 98.0 F 97.1 F L 97.1 F L Pulse Rate 97 H 91 H 91 H Respiratory Rate 18 19 19 Blood Pressure 111/56 L 127/70 127/70 Pulse Oximetry 93 L 94 L 04/22/18 03:31 04/22/18 04:45 04/22/18 05:40 Temperature 97.3 F L 97.8 F 97.6 F Pulse Rate 84 89 89 Respiratory Rate 18 18 18 Blood Pressure 109/74 134/73 136/83 Pulse Oximetry 92 L 93 L 93 L 04/22/18 08:00 04/22/18 09:41 04/22/18 12:00 Temperature 97.4 F L 97.7 F Pulse Rate 99 H 102 H 85 Respiratory Rate 18 19 17 Blood Pressure 162/100 H 108/73 Pulse Oximetry 93 L 94 L 99 Intake & Output 04/21/18 04/22/18 04/22/18 18:59 06:59 18:59 Intake Total 480 / 480 Output Total 200 / 200 200 / 200 Balance -200 / -200 280 / 280 Weight 88.9 kg Intake: Oral 480 / 480 Output: Urine 200 / 200 200 / 200 Other: # Voids 2 Narrative: GENERAL: Elderly male laying in bed in NAD. SKIN: Warm and dry. Ecchymoses and purpura over extremities. Superficial skin tear over right elbow. HEENT: No palpable lumps over the skull. No gross trauma visualized. Pupils equal and round. MMM. No scleral icterus. HEART: IRR no m/r/g. LUNGS: CTAB without wheezes or crackles. ABDOMEN: +BS, soft, NT, ND. EXTREMITIES: No LE edema. Calves supple and nontender. NEURO: Awake and alert. Results Procedures completed during hospitalization: EGD 04/18 Completed studies during hospitalization: 2D echo with EF 45% Labs on day of discharge: Labs from last 24 hours 04/22/18 04/22/18 04/21/18 12:06 08:59 21:39 POC Glucose 130 H 108 141 H 04/21/18 15:36 POC Glucose 126 H - Impressions Chest X-Ray 04/17/18 13:22 CONCLUSION: No acute cardiopulmonary disease. Liver Ultrasound 04/18/18 00:00 CONCLUSION: 1. Abnormal heterogeneous hyperechoic hepatic echotexture characteristic of diffuse hepatocellular disease. 2. Trace ascites. 3. No evidence of acute process, cholelithiasis or biliary obstructive disease. Head CT 04/21/18 00:00 CONCLUSION: No acute intracranial abnormality demonstrated. Discharge Plan - Discharge Disposition Patient Disposition: 01 Discharge Home - Discharge Condition Condition: Stable - Discharge Order Discharge Orders: Discharge Order (Routine); Ordered 04/22/18 Ordered By: Shyela Vieira - Discharge Details Anticipated Discharge Date: 04/22/18 - Physicians Team Primary Care Provider: Michelet Serna Attending Provider: Serge Honeycutt Other Providers: Radha Burk MD
[2018-04-22 16:46] VITALS: BP 126/83; PULSE 89; RESP 18; TEMP 97.8; O2SAT 92
== END 2018-04-22 17:01 ==
LOC: PHED 12:57 → PHEDH 15:15 → HIMC 18:30 → N07 04-20 15:56
PROVIDERS: ADMIT Hospitalist; ATTEND Hospitalist
PROC: PANENDO (2018-04-18 14:30)